=== PATIENT | female | born 1940 | race Caucasian/White ===

== ENCOUNTER 2017-06-22 09:27 | Emergency (ER) | payer OTHER, SELFPAY ==
[~2017-06-22] VITALS: Ht 160 cm; Wt 68.0 kg
[~2017-06-22 09:27] MED LIST: ACET325 PO; ALPR.5 PO; AMIT10 PO; AMIT50 PO; ASPI81CH PO; ATOR10 PO; CARV6.25; CARV6.25 PO; CEFU500 PO; CEPH500 PO; CITA20 PO; CLOP75 PO; CYCL10 PO; DIAZ10; DIGO.05 PO; DIGO.25 PO; DIPATR PO; DOCU100 PO; FURO40 PO; GLIP2.5ER PO; GLIP5 PO; HYDACE5 PO; HYDACE7.5 PO; IBUP800 PO; IRON PO; IRON325 MG PO; LANOXIN125 MCG PO; LEVE500 PO; LOPE2C PO; LOSA25 PO; LOSA50 PO; LOVA20 PO; LOVA40; LOVA40 PO; MAGOXI400 PO; MECL25 PO; METF500 PO; Micro-K10 MEQ PO; Motion Sickness25 M1 PO; Norco 7.5-3251 EACH PO; Nortriptyline H25 MG PO; ONDA4 PO; TRAZ100 PO; TRAZ50 PO; TRIHYD253A PO; VICODIN ES 7.51 EACH PO; VITAMIN D50000 UNIT PO; WARF1 PO; WARF2 PO; WARF5 PO; WATER PILL?; XARELTO15 MG PO; [UNRECOGNIZED DRUG - OTHER]; [UNRECOGNIZED DRUG - REMARK]; [UNRECOGNIZED DRUG - REMARK]; [UNRECOGNIZED DRUG - REMARK]; [UNRECOGNIZED DRUG - REMARK]
[2017-06-22 10:16] LABS: BASOPHILS ABSOLUTE AUTO 0.06 K/mm3 (0.00-0.23); BASOPHILS PERCENT AUTO 1 % (0-2); EOSINOPHILS ABSOLUTE AUTO 0.18 K/mm3 (0.00-0.68); EOSINOPHILS PERCENT AUTO 2 % (0-6); Hematocrit 35.1 % (33.0-51.0); Hemoglobin 11.7 g/dL (11.5-16.0); IMMATURE GRAN ABSOLUTE AUTO 0.03 K/mm3 (0.00-0.10); IMMATURE GRAN PERCENT AUTO 0 % (0-1); LYMPHOCYTES ABSOLUTE AUTO 1.34 K/mm3 (0.84-5.20); LYMPHOCYTES PERCENT AUTO 15 % (21-46); MONOCYTES ABSOLUTE AUTO 0.64 K/mm3 (0.16-1.47); MONOCYTES PERCENT AUTO 7 % (4-13); Mean Corpuscular HGB 34.2 pg (26.0-34.0); Mean Corpuscular HGB Conc 33.3 g/dL (31.5-36.5); Mean Corpuscular Volume 103 fL (80-100); Mean Platelet Volume 9.5 fL (9.1-12.4); NEUTROPHILS ABSOLUTE AUTO 6.54 K/mm3 (1.96-9.15); NEUTROPHILS PERCENT AUTO 75 % (41-73); Platelet Count 107 K/mm3 (150-400); RDW Coefficient Variation 15.5 % (11.7-14.2); RDW Standard Deviation 58.2 fL (35.1-46.3); Red Blood Cell Count 3.42 M/mm3 (3.80-5.20); White Blood Cell Count 8.79 K/mm3 (4.00-11.30)
[2017-06-22 10:41] LABS: Troponin I <0.015 ng/mL (0.000-0.040)
[2017-06-22 10:47] LABS: Alanine Aminotransfer (ALT/SGP 27 U/L (12-78); Albumin, Blood 3.1 g/dL (3.4-5.0); Albumin/Globulin Ratio 0.7 (0.8-1.8); Alk Phos 109 U/L (50-136); Anion Gap 6 mmol/L (6-16); Aspartate Aminotrans (AST/SGOT 42 U/L (12-37); Bilirubin, Total 1.6 mg/dL (0.1-1.0); Blood Urea Nitrogen 7 mg/dL (8-24); CO2, Blood 28 mmol/L (21-32); Calcium, Blood 8.5 mg/dL (8.5-10.1); Chloride, Blood 102 mmol/L (98-108); Creatinine, Blood 0.59 mg/dL (0.40-1.00); Globulin, Blood 4.2 g/dL (2.2-4.0); Glomerular Filtration Rate >60 (60-); Glucose, Blood 198 mg/dL (70-99); Sodium, Blood 136 mmol/L (136-145); Total Protein, Blood 7.3 g/dL (6.4-8.2)
[2017-06-22 10:48] LABS: Digoxin (Lanoxin) 0.67 ug/mL (0.80-2.00)
[2017-06-22 11:26] LABS: Source, Urine Voided
[2017-06-22 11:40] LABS: Bilirubin, Urine Neg (Neg); Blood, Urine 3+ (Neg); Glucose Qualitative, Urine Neg (Neg); Ketones, Urine Neg (Neg); Leukocyte Esterase, Urine 2+ (Neg); Nitrite, Urine Neg (Neg); Protein, Urine 4+ (Neg); Urobilinogen, Urine NORM (Normal); pH, Urine 6.5 (5.0-8.0)
[2017-06-22 11:47] LABS: Appearance, Urine Clear (Clear); Color, Urine Yellow (P-Yellow)
[2017-06-22 11:54] LABS: Bacteria Many /hpf; Squamous Epithelial Cells Mod /hpf (Few)
[2017-06-22] MEDS ORDERED: Mucinex600 MG PO (12:04)
[2017-06-22] MEDS ORDERED: CEPH500 PO (12:04)
[2017-08-29] MEDS ORDERED: MONT10T PO (02:40)
[2017-08-29] MEDS ORDERED: CITA20 PO (02:40)
[2017-08-29] MEDS ORDERED: DOXE10 PO (02:40)
[2017-09-01] MEDS ORDERED: CEFD300 PO (14:21)
[2017-09-01] MEDS ORDERED: PRED10 PO (14:22)
[2017-09-01] MEDS ORDERED: ALBU90OI INH (14:22)
== END 2017-06-22 12:30 | disposition home or self-care (01) ==
LOC: ER 09:27
PROVIDERS: Emergency Medicine
DX: J20.9 Acute bronchitis, unspecified (principal); N39.0 Urinary tract infection, site not specified; E11.9 Type 2 diabetes mellitus without complications; I10 Essential (primary) hypertension; Z88.0 Allergy status to penicillin; Z88.2 Allergy status to sulfonamides; Z88.5 Allergy status to narcotic agent; Z88.1 Allergy status to other antibiotic agents; Z79.899 Other long term (current) drug therapy; Z79.82 Long term (current) use of aspirin; Z86.73 Personal history of transient ischemic attack (TIA), and cerebral infarction without residual deficits; Z90.49 Acquired absence of other specified parts of digestive tract
CPT/HCPCS: 36415; 71046; 80053; 80162; 81001; 83880; 84484; 85025; 87077; 87086; 87186; 93005; 93010; 99284

== ENCOUNTER 2017-08-29 00:37 | Inpatient (IN) | payer OTHER, SELFPAY ==
[~2017-08-29] VITALS: Ht 160 cm; Wt 74.1 kg
[~2017-08-29 00:37] MED LIST changes: +CARV3.125 PO; -CARV6.25 PO; +Mucinex600 MG PO
[2017-08-29 01:47] LABS: BASOPHILS ABSOLUTE AUTO 0.04 K/mm3 (0.00-0.23); BASOPHILS PERCENT AUTO 1 % (0-2); EOSINOPHILS ABSOLUTE AUTO 0.19 K/mm3 (0.00-0.68); EOSINOPHILS PERCENT AUTO 3 % (0-6); Hematocrit 32.1 % (33.0-51.0); Hemoglobin 10.8 g/dL (11.5-16.0); IMMATURE GRAN ABSOLUTE AUTO 0.02 K/mm3 (0.00-0.10); IMMATURE GRAN PERCENT AUTO 0 % (0-1); LYMPHOCYTES ABSOLUTE AUTO 1.08 K/mm3 (0.84-5.20); LYMPHOCYTES PERCENT AUTO 15 % (21-46); MONOCYTES ABSOLUTE AUTO 0.68 K/mm3 (0.16-1.47); MONOCYTES PERCENT AUTO 9 % (4-13); Mean Corpuscular HGB 34.1 pg (26.0-34.0); Mean Corpuscular HGB Conc 33.6 g/dL (31.5-36.5); Mean Corpuscular Volume 101 fL (80-100); NEUTROPHILS ABSOLUTE AUTO 5.35 K/mm3 (1.96-9.15); NEUTROPHILS PERCENT AUTO 73 % (41-73); Platelet Count 77 K/mm3 (150-400); RDW Coefficient Variation 14.2 % (11.7-14.2); Red Blood Cell Count 3.17 M/mm3 (3.80-5.20); White Blood Cell Count 7.36 K/mm3 (4.00-11.30)
[2017-08-29 02:00] LABS: International Normalized Ratio 1.09; Prothrombin Time Results 11.4 Sec (9.7-11.5)
[2017-08-29 02:03] LABS: Alanine Aminotransfer (ALT/SGP 26 U/L (12-78); Albumin, Blood 2.9 g/dL (3.4-5.0); Albumin/Globulin Ratio 0.7 (0.8-1.8); Alk Phos 132 U/L (50-136); Anion Gap 8 mmol/L (6-16); Aspartate Aminotrans (AST/SGOT 43 U/L (12-37); Blood Urea Nitrogen 14 mg/dL (8-24); CO2, Blood 24 mmol/L (21-32); Calcium, Blood 8.1 mg/dL (8.5-10.1); Chloride, Blood 103 mmol/L (98-108); Creatinine, Blood 0.64 mg/dL (0.40-1.00); Globulin, Blood 3.9 g/dL (2.2-4.0); Glomerular Filtration Rate >60 (60-); Glucose, Blood 200 mg/dL (70-99); Potassium, Blood 3.9 mmol/L (3.5-5.5); Sodium, Blood 135 mmol/L (136-145); Total Protein, Blood 6.8 g/dL (6.4-8.2)
[2017-08-29] MEDS ORDERED: CITA20 PO ×2 (02:40)
[2017-08-29] MEDS ORDERED: MONT10T PO ×2 (02:40)
[2017-08-29] MEDS ORDERED: DOXE10 PO ×2 (02:40)
[2017-08-29 02:59] LABS: Source, Urine Catheter
[2017-08-29 03:08] LABS: Bilirubin, Urine Neg (Neg); Blood, Urine 3+ (Neg); Glucose Qualitative, Urine Neg (Neg); Ketones, Urine Neg (Neg); Leukocyte Esterase, Urine Neg (Neg); Nitrite, Urine Pos (Neg); Protein, Urine 4+ (Neg); Urobilinogen, Urine NORM (Normal)
[2017-08-29 03:11] LABS: Appearance, Urine Hazy (Clear); Color, Urine Yellow (P-Yellow)
[2017-08-29 03:15] LABS: Bacteria Many /hpf; Red Blood Cells, Urine Rare /hpf (0-2); Squamous Epithelial Cells Few /hpf (Few)
[2017-08-29 05:01] LABS: Digoxin (Lanoxin) 0.55 ug/mL (0.80-2.00)
[2017-08-29 05:48] LABS: Influenza A Negative (NEGATIVE); Influenza B Negative (NEGATIVE)
[2017-08-29 13:45] LABS: BASOPHILS ABSOLUTE AUTO 0.05 K/mm3 (0.00-0.23); BASOPHILS PERCENT AUTO 1 % (0-2); EOSINOPHILS ABSOLUTE AUTO 0.24 K/mm3 (0.00-0.68); EOSINOPHILS PERCENT AUTO 4 % (0-6); Hematocrit 30.8 % (33.0-51.0); Hemoglobin 10.2 g/dL (11.5-16.0); IMMATURE GRAN ABSOLUTE AUTO 0.02 K/mm3 (0.00-0.10); IMMATURE GRAN PERCENT AUTO 0 % (0-1); LYMPHOCYTES ABSOLUTE AUTO 1.48 K/mm3 (0.84-5.20); LYMPHOCYTES PERCENT AUTO 22 % (21-46); MONOCYTES ABSOLUTE AUTO 0.78 K/mm3 (0.16-1.47); MONOCYTES PERCENT AUTO 12 % (4-13); Mean Corpuscular HGB 33.7 pg (26.0-34.0); Mean Corpuscular HGB Conc 33.1 g/dL (31.5-36.5); Mean Corpuscular Volume 102 fL (80-100); Mean Platelet Volume 10.1 fL (9.1-12.4); NEUTROPHILS ABSOLUTE AUTO 4.03 K/mm3 (1.96-9.15); NEUTROPHILS PERCENT AUTO 61 % (41-73); Platelet Count 87 K/mm3 (150-400); RDW Coefficient Variation 14.4 % (11.7-14.2); RDW Standard Deviation 54.1 fL (35.1-46.3); Red Blood Cell Count 3.03 M/mm3 (3.80-5.20)
[2017-08-29 13:59] LABS: Alanine Aminotransfer (ALT/SGP 22 U/L (12-78); Albumin, Blood 2.8 g/dL (3.4-5.0); Albumin/Globulin Ratio 0.8 (0.8-1.8); Alk Phos 87 U/L (50-136); Anion Gap 7 mmol/L (6-16); Aspartate Aminotrans (AST/SGOT 41 U/L (12-37); Bilirubin, Total 1.2 mg/dL (0.1-1.0); Blood Urea Nitrogen 12 mg/dL (8-24); CO2, Blood 25 mmol/L (21-32); Calcium, Blood 7.7 mg/dL (8.5-10.1); Chloride, Blood 103 mmol/L (98-108); Creatinine, Blood 0.71 mg/dL (0.40-1.00); Globulin, Blood 3.7 g/dL (2.2-4.0); Glomerular Filtration Rate >60 (60-); Glucose, Blood 139 mg/dL (70-99); Potassium, Blood 3.9 mmol/L (3.5-5.5); Sodium, Blood 135 mmol/L (136-145); Total Protein, Blood 6.5 g/dL (6.4-8.2)
[2017-08-30 15:58] LABS: Albumin, Blood 2.9 g/dL (3.4-5.0); Anion Gap 9 mmol/L (6-16); Blood Urea Nitrogen 15 mg/dL (8-24); Bun/Creatinine Ratio 21.2 (12.0-20.0); CO2, Blood 23 mmol/L (21-32); Chloride, Blood 99 mmol/L (98-108); Creatinine, Blood 0.71 mg/dL (0.40-1.00); Glomerular Filtration Rate >60 (60-); Glucose, Blood 256 mg/dL (70-99); Phosphorus, Blood 3.2 mg/dL (2.5-4.9); Potassium, Blood 4.5 mmol/L (3.5-5.5); Sodium, Blood 131 mmol/L (136-145)
[2017-08-31 05:13] LABS: Hematocrit 31.4 % (33.0-51.0); Hemoglobin 10.4 g/dL (11.5-16.0); Mean Corpuscular HGB 32.9 pg (26.0-34.0); Mean Corpuscular HGB Conc 33.1 g/dL (31.5-36.5); Mean Platelet Volume 10.8 fL (9.1-12.4); Platelet Count 85 K/mm3 (150-400); RDW Coefficient Variation 14.2 % (11.7-14.2); RDW Standard Deviation 51.7 fL (35.1-46.3); Red Blood Cell Count 3.16 M/mm3 (3.80-5.20); White Blood Cell Count 4.51 K/mm3 (4.00-11.30)
[2017-08-31 05:24] LABS: Mean Corpuscular Volume 99 fL (80-100)
[2017-08-31 05:39] LABS: Anion Gap 8 mmol/L (6-16); Blood Urea Nitrogen 15 mg/dL (8-24); Bun/Creatinine Ratio 22.3 (12.0-20.0); CO2, Blood 24 mmol/L (21-32); Calcium, Blood 8.3 mg/dL (8.5-10.1); Chloride, Blood 98 mmol/L (98-108); Creatinine, Blood 0.67 mg/dL (0.40-1.00); Glomerular Filtration Rate >60 (60-); Glucose, Blood 183 mg/dL (70-99); Potassium, Blood 4.2 mmol/L (3.5-5.5); Sodium, Blood 130 mmol/L (136-145)
[2017-08-31 06:15] LABS: BAND PERCENT MAN 3 % (0-8); BASOPHILS PERCENT MAN 0 % (0-2); EOSINOPHILS PERCENT MAN 0 % (0-6); LYMPHOCYTES % ATYPICAL MANUAL 1 % (0-0); LYMPHOCYTES ABSOLUTE MAN 0.36 K/mm3 (0.84-5.20); LYMPHOCYTES PERCENT MAN 7 % (21-46); MONOCYTES PERCENT MAN 0 % (4-13); NEUTROPHILS ABSOLUTE MAN 4.14 K/mm3 (1.96-9.15); SEG NEUTROPHILS PERCENT MAN 89 % (41-73); TOTAL CELLS COUNTED 100
[2017-09-01 05:04] LABS: Hematocrit 31.9 % (33.0-51.0); Hemoglobin 10.4 g/dL (11.5-16.0); Mean Corpuscular HGB 33.1 pg (26.0-34.0); Mean Corpuscular HGB Conc 32.6 g/dL (31.5-36.5); Mean Platelet Volume 10.3 fL (9.1-12.4); Platelet Count 100 K/mm3 (150-400); RDW Coefficient Variation 14.7 % (11.7-14.2); RDW Standard Deviation 55.5 fL (35.1-46.3); Red Blood Cell Count 3.14 M/mm3 (3.80-5.20); White Blood Cell Count 8.24 K/mm3 (4.00-11.30)
[2017-09-01 05:11] LABS: Mean Corpuscular Volume 102 fL (80-100)
[2017-09-01 05:31] LABS: Alanine Aminotransfer (ALT/SGP 22 U/L (12-78); Albumin, Blood 2.9 g/dL (3.4-5.0); Albumin/Globulin Ratio 0.7 (0.8-1.8); Alk Phos 99 U/L (50-136); Anion Gap 5 mmol/L (6-16); Aspartate Aminotrans (AST/SGOT 33 U/L (12-37); Bilirubin, Total 0.4 mg/dL (0.1-1.0); Blood Urea Nitrogen 25 mg/dL (8-24); Bun/Creatinine Ratio 32.5 (12.0-20.0); CO2, Blood 26 mmol/L (21-32); Calcium, Blood 8.3 mg/dL (8.5-10.1); Chloride, Blood 102 mmol/L (98-108); Creatinine, Blood 0.77 mg/dL (0.40-1.00); Globulin, Blood 4.1 g/dL (2.2-4.0); Glomerular Filtration Rate >60 (60-); Glucose, Blood 199 mg/dL (70-99); Potassium, Blood 4.4 mmol/L (3.5-5.5); Sodium, Blood 133 mmol/L (136-145)
[2017-09-01 05:37] LABS: BASOPHILS PERCENT MAN 0 % (0-2); EOSINOPHILS PERCENT MAN 0 % (0-6); LYMPHOCYTES % ATYPICAL MANUAL 4 % (0-0); LYMPHOCYTES ABSOLUTE MAN 1.23 K/mm3 (0.84-5.20); LYMPHOCYTES PERCENT MAN 11 % (21-46); MONOCYTES ABSOLUTE MAN 0.32 K/mm3 (0.16-1.47); MONOCYTES PERCENT MAN 4 % (4-13); NEUTROPHILS ABSOLUTE MAN 6.67 K/mm3 (1.96-9.15); SEG NEUTROPHILS PERCENT MAN 81 % (41-73); TOTAL CELLS COUNTED 100
[2017-09-01] MEDS ORDERED: CEFD300 PO ×2 (14:21)
[2017-09-01] MEDS ORDERED: ALBU90OI INH ×2 (14:22)
[2017-09-01] MEDS ORDERED: PRED10 PO ×2 (14:22)
== END 2017-09-01 18:20 | disposition home or self-care (01) | DRG 190 ==
LOC: ER 00:37 → MEDS 04:05
PROVIDERS: Emergency Medicine; Internal Medicine; Internal Medicine Endocrinology, Diabetes & Metabolism
DX: J44.0 Chronic obstructive pulmonary disease with (acute) lower respiratory infection (principal); J96.01 Acute respiratory failure with hypoxia; N39.0 Urinary tract infection, site not specified; J20.9 Acute bronchitis, unspecified; J44.1 Chronic obstructive pulmonary disease with (acute) exacerbation; I48.2 Chronic atrial fibrillation; E11.65 Type 2 diabetes mellitus with hyperglycemia; Z79.4 Long term (current) use of insulin; D69.6 Thrombocytopenia, unspecified; D63.8 Anemia in other chronic diseases classified elsewhere; I10 Essential (primary) hypertension; D86.9 Sarcoidosis, unspecified; B95.7 Other staphylococcus as the cause of diseases classified elsewhere
CPT/HCPCS: 36415; 71046; 80048; 80053; 80069; 80162; 81001; 82947; 83605; 83880; 85025; 85610; 85730; 87040; 87077; 87086; 87186; 87804; 93005; 93010; 94640; 94760; 94761; 96361; 96365; 96375; 99285; J0456; J0696; J1650; J2930; J7030; J7050

== ENCOUNTER 2017-09-04 01:43 | Emergency (ER) | payer OTHER, SELFPAY | END 2017-09-04 03:30 | disposition left against medical advice (07) | LOC: ER 01:43 | DX: Z53.21 Procedure and treatment not carried out due to patient leaving prior to being seen by health care provider (principal) ==

== ENCOUNTER → 2017-09-04 | Outpatient (CLI) | payer OTHER, SELFPAY ==
[~2017-09-04] MED LIST changes: +ALBU90OI INH; +CEFD300 PO; +DOXE10 PO; +MONT10T PO; +PRED10 PO
[2017-09-04 12:07] LABS: BASOPHILS ABSOLUTE AUTO 0.01 K/mm3 (0.00-0.23); BASOPHILS PERCENT AUTO 0 % (0-2); EOSINOPHILS PERCENT AUTO 0 % (0-6); Hematocrit 32.3 % (33.0-51.0); Hemoglobin 10.8 g/dL (11.5-16.0); IMMATURE GRAN ABSOLUTE AUTO 0.05 K/mm3 (0.00-0.10); IMMATURE GRAN PERCENT AUTO 1 % (0-1); LYMPHOCYTES PERCENT AUTO 10 % (21-46); MONOCYTES ABSOLUTE AUTO 0.43 K/mm3 (0.16-1.47); MONOCYTES PERCENT AUTO 6 % (4-13); Mean Corpuscular HGB 33.2 pg (26.0-34.0); Mean Corpuscular HGB Conc 33.4 g/dL (31.5-36.5); Mean Platelet Volume 9.9 fL (9.1-12.4); NEUTROPHILS ABSOLUTE AUTO 5.74 K/mm3 (1.96-9.15); NEUTROPHILS PERCENT AUTO 83 % (41-73); Platelet Count 115 K/mm3 (150-400); RDW Coefficient Variation 14.7 % (11.7-14.2); RDW Standard Deviation 53.6 fL (35.1-46.3); Red Blood Cell Count 3.25 M/mm3 (3.80-5.20); White Blood Cell Count 6.93 K/mm3 (4.00-11.30)
[2017-09-04 12:10] LABS: Mean Corpuscular Volume 99 fL (80-100)
[2017-09-04 12:17] LABS: Alanine Aminotransfer (ALT/SGP 35 U/L (12-78); Albumin/Globulin Ratio 0.8 (0.8-1.8); Alk Phos 137 U/L (40-126); Anion Gap 8 mmol/L (6-16); Aspartate Aminotrans (AST/SGOT 41 U/L (12-37); Bilirubin, Total 0.7 mg/dL (0.1-1.0); Blood Urea Nitrogen 18 mg/dL (8-24); Bun/Creatinine Ratio 23.4 (12.0-20.0); CO2, Blood 30 mmol/L (21-32); Calcium, Blood 8.3 mg/dL (8.5-10.1); Chloride, Blood 100 mmol/L (98-108); Creatinine, Blood 0.77 mg/dL (0.40-1.00); Globulin, Blood 3.9 g/dL (2.2-4.0); Glomerular Filtration Rate >60 (60-); Glucose, Blood 212 mg/dL (70-99); Potassium, Blood 4.2 mmol/L (3.5-5.5); Sodium, Blood 138 mmol/L (136-145); Total Protein, Blood 6.9 g/dL (6.4-8.2)
== END | disposition home or self-care (01) ==
LOC: LAB SHORT 12:00 → LAB EV 12:00
PROVIDERS: Physician Assistant
DX: R73.9 Hyperglycemia, unspecified (principal); R05 Cough
CPT/HCPCS: 80053; 83880; 85025

== ENCOUNTER 2017-11-15 01:49 | Emergency (ER) | payer OTHER ==
[~2017-11-15 01:49] MED LIST changes: -CARV3.125 PO; +CARV6.25 PO
[2017-11-15] MEDS ORDERED: HYDR1TAB94 PO (16:57)
[2017-11-15] MEDS ORDERED: POTCHL10ER PO (16:58)
[2017-11-15] MEDS ORDERED: XARELTO15 MG PO (16:58)
[2017-11-15] MEDS ORDERED: PROMETH-CODEIN 65 ML PO (17:00)
[2017-11-16] MEDS ORDERED: INSULANPEN SC (13:15)
== END 2017-11-15 04:03 | disposition left against medical advice (07) ==
LOC: ER 01:49
DX: Z53.21 Procedure and treatment not carried out due to patient leaving prior to being seen by health care provider (principal)

== ENCOUNTER 2017-11-15 15:26 | Inpatient (IN) | payer OTHER ==
[~2017-11-15] VITALS: Ht 160 cm; Wt 74.0 kg
[2017-11-15 15:55] LABS: BASOPHILS ABSOLUTE AUTO 0.08 K/mm3 (0.00-0.23); BASOPHILS PERCENT AUTO 1 % (0-2); EOSINOPHILS ABSOLUTE AUTO 0.26 K/mm3 (0.00-0.68); EOSINOPHILS PERCENT AUTO 3 % (0-6); Hematocrit 33.2 % (33.0-51.0); IMMATURE GRAN ABSOLUTE AUTO 0.03 K/mm3 (0.00-0.10); IMMATURE GRAN PERCENT AUTO 0 % (0-1); LYMPHOCYTES ABSOLUTE AUTO 2.34 K/mm3 (0.84-5.20); LYMPHOCYTES PERCENT AUTO 24 % (21-46); MONOCYTES ABSOLUTE AUTO 1.18 K/mm3 (0.16-1.47); MONOCYTES PERCENT AUTO 12 % (4-13); Mean Corpuscular HGB 32.9 pg (26.0-34.0); Mean Corpuscular HGB Conc 33.1 g/dL (31.5-36.5); Mean Corpuscular Volume 99 fL (80-100); Mean Platelet Volume 10.3 fL (9.1-12.4); NEUTROPHILS ABSOLUTE AUTO 6.01 K/mm3 (1.96-9.15); NEUTROPHILS PERCENT AUTO 61 % (41-73); Platelet Count 112 K/mm3 (150-400); RDW Coefficient Variation 14.8 % (11.7-14.2); RDW Standard Deviation 54.1 fL (35.1-46.3); Red Blood Cell Count 3.34 M/mm3 (3.80-5.20)
[2017-11-15 16:14] LABS: Alanine Aminotransfer (ALT/SGP 26 U/L (12-78); Albumin, Blood 3.2 g/dL (3.4-5.0); Albumin/Globulin Ratio 0.9 (0.8-1.8); Alk Phos 106 U/L (50-136); Anion Gap 11 mmol/L (6-16); Aspartate Aminotrans (AST/SGOT 51 U/L (12-37); Bilirubin, Total 1.1 mg/dL (0.1-1.0); Blood Urea Nitrogen 13 mg/dL (8-24); Bun/Creatinine Ratio 22.5 (12.0-20.0); CO2, Blood 23 mmol/L (21-32); Calcium, Blood 8.3 mg/dL (8.5-10.1); Chloride, Blood 98 mmol/L (98-108); Creatinine, Blood 0.58 mg/dL (0.40-1.00); Globulin, Blood 3.6 g/dL (2.2-4.0); Glomerular Filtration Rate >60 (60-); Glucose, Blood 141 mg/dL (70-99); Sodium, Blood 132 mmol/L (136-145); Total Protein, Blood 6.8 g/dL (6.4-8.2); Troponin I 0.073 ng/mL (0.000-0.040)
[2017-11-15] MEDS ORDERED: HYDR1TAB94 PO (16:57)
[2017-11-15] MEDS ORDERED: POTCHL10ER PO (16:58)
[2017-11-15] MEDS ORDERED: XARELTO15 MG PO (16:58)
[2017-11-15] MEDS ORDERED: PROMETH-CODEIN 65 ML PO (17:00)
[2017-11-15 19:00] LABS: Digoxin (Lanoxin) <0.06 ug/mL (0.80-2.00)
[2017-11-16 08:45] LABS: Anion Gap 10 mmol/L (6-16); Blood Urea Nitrogen 15 mg/dL (8-24); CO2, Blood 26 mmol/L (21-32); Calcium, Blood 8.4 mg/dL (8.5-10.1); Chloride, Blood 94 mmol/L (98-108); Creatinine, Blood 0.58 mg/dL (0.40-1.00); Glomerular Filtration Rate >60 (60-); Glucose, Blood 131 mg/dL (70-99); Potassium, Blood 3.9 mmol/L (3.5-5.5); Sodium, Blood 130 mmol/L (136-145)
[2017-11-16] MEDS ORDERED: INSULANPEN SC (13:15)
[2017-11-17 00:39] LABS: Source, Urine Clean Catch
[2017-11-17 00:49] LABS: Bilirubin, Urine Neg (Neg); Blood, Urine 1+ (Neg); Glucose Qualitative, Urine Neg (Neg); Ketones, Urine Neg (Neg); Leukocyte Esterase, Urine 3+ (Neg); Nitrite, Urine Neg (Neg); Protein, Urine 1+ (Neg); Urobilinogen, Urine NORM (Normal)
[2017-11-17 00:56] LABS: Appearance, Urine Clear (Clear); Color, Urine Yellow (P-Yellow); Red Blood Cells, Urine 0-2 /hpf (0-2); Squamous Epithelial Cells Few /hpf (Few); White Blood Cells, Urine 25-50 /hpf (0-5)
[2017-11-17 00:57] LABS: Bacteria Few /hpf
[2017-11-18 05:39] LABS: BASOPHILS ABSOLUTE AUTO 0.05 K/mm3 (0.00-0.23); BASOPHILS PERCENT AUTO 1 % (0-2); EOSINOPHILS ABSOLUTE AUTO 0.22 K/mm3 (0.00-0.68); EOSINOPHILS PERCENT AUTO 4 % (0-6); Hematocrit 32.5 % (33.0-51.0); Hemoglobin 10.8 g/dL (11.5-16.0); IMMATURE GRAN ABSOLUTE AUTO 0.02 K/mm3 (0.00-0.10); IMMATURE GRAN PERCENT AUTO 0 % (0-1); LYMPHOCYTES ABSOLUTE AUTO 1.58 K/mm3 (0.84-5.20); LYMPHOCYTES PERCENT AUTO 25 % (21-46); MONOCYTES ABSOLUTE AUTO 0.98 K/mm3 (0.16-1.47); MONOCYTES PERCENT AUTO 16 % (4-13); Mean Corpuscular HGB 33.3 pg (26.0-34.0); Mean Corpuscular HGB Conc 33.2 g/dL (31.5-36.5); Mean Corpuscular Volume 100 fL (80-100); Mean Platelet Volume 10.4 fL (9.1-12.4); NEUTROPHILS ABSOLUTE AUTO 3.48 K/mm3 (1.96-9.15); NEUTROPHILS PERCENT AUTO 55 % (41-73); Platelet Count 91 K/mm3 (150-400); RDW Coefficient Variation 14.9 % (11.7-14.2); RDW Standard Deviation 55.6 fL (35.1-46.3); Red Blood Cell Count 3.24 M/mm3 (3.80-5.20); White Blood Cell Count 6.33 K/mm3 (4.00-11.30)
[2017-11-18 06:06] LABS: Alanine Aminotransfer (ALT/SGP 25 U/L (12-78); Albumin, Blood 2.8 g/dL (3.4-5.0); Albumin/Globulin Ratio 0.8 (0.8-1.8); Alk Phos 94 U/L (50-136); Anion Gap 9 mmol/L (6-16); Aspartate Aminotrans (AST/SGOT 43 U/L (12-37); Bilirubin, Total 0.6 mg/dL (0.1-1.0); Blood Urea Nitrogen 25 mg/dL (8-24); Bun/Creatinine Ratio 28.1 (12.0-20.0); CO2, Blood 26 mmol/L (21-32); Calcium, Blood 8.6 mg/dL (8.5-10.1); Chloride, Blood 102 mmol/L (98-108); Creatinine, Blood 0.89 mg/dL (0.40-1.00); Globulin, Blood 3.5 g/dL (2.2-4.0); Glomerular Filtration Rate >60 (60-); Glucose, Blood 96 mg/dL (70-99); Potassium, Blood 4.3 mmol/L (3.5-5.5); Sodium, Blood 137 mmol/L (136-145); Total Protein, Blood 6.3 g/dL (6.4-8.2)
[2017-11-18] MEDS ORDERED: LANOXIN125 MCG PO (12:26)
[2017-11-18] MEDS ORDERED: CEPH500 PO (12:27)
== END 2017-11-18 17:30 | disposition home or self-care (01) | DRG 291 ==
LOC: ER 15:26 → PCU 18:50 → MEDS 20:35 → PCU 20:35 → MEDS 11-16 17:45
PROVIDERS: Emergency Medicine; Internal Medicine
DX: I11.0 Hypertensive heart disease with heart failure (principal); J96.01 Acute respiratory failure with hypoxia; I24.8 Other forms of acute ischemic heart disease; E87.1 Hypo-osmolality and hyponatremia; N39.0 Urinary tract infection, site not specified; Z79.82 Long term (current) use of aspirin; I50.33 Acute on chronic diastolic (congestive) heart failure; D86.9 Sarcoidosis, unspecified; E78.5 Hyperlipidemia, unspecified; Z90.49 Acquired absence of other specified parts of digestive tract; Z96.652 Presence of left artificial knee joint; Z87.891 Personal history of nicotine dependence; I48.2 Chronic atrial fibrillation; Z86.73 Personal history of transient ischemic attack (TIA), and cerebral infarction without residual deficits; E11.9 Type 2 diabetes mellitus without complications; D63.8 Anemia in other chronic diseases classified elsewhere; Z79.4 Long term (current) use of insulin; Z87.440 Personal history of urinary (tract) infections; D69.6 Thrombocytopenia, unspecified; I08.1 Rheumatic disorders of both mitral and tricuspid valves
CPT/HCPCS: 36415; 71046; 80048; 80053; 80162; 81001; 82947; 83036; 83880; 84484; 85025; 87086; 93005; 93010; 93306; 94760; 96365; 96375; 99285-25; J0696; J1815; J1940; J7030

== ENCOUNTER 2018-04-19 06:13 | Day surgery (SDC) | payer OTHER ==
[~2018-04-19] VITALS: Ht 160 cm; Wt 69.4 kg
[~2018-04-19 06:13] MED LIST changes: +HYDR1TAB94 PO; +INSULANPEN SC; +POTCHL10ER PO; +PROMETH-CODEIN 65 ML PO
== END 2018-04-19 11:47 | disposition home or self-care (01) ==
LOC: ORSCSDS 06:13
PROVIDERS: Orthopaedic Surgery
PROC: 0RNK4ZZ Release Left Shoulder Joint, Percutaneous Endoscopic Approach (ICD-10-PCS; principal; 2018-04-19 07:30)
PROC: 0LQ24ZZ Repair Left Shoulder Tendon, Percutaneous Endoscopic Approach (ICD-10-PCS; principal; 2018-04-19 07:30)
PROC: 0RBK4ZZ Excision of Left Shoulder Joint, Percutaneous Endoscopic Approach (ICD-10-PCS; principal; 2018-04-19 07:30)
PROC: 0LS24ZZ Reposition Left Shoulder Tendon, Percutaneous Endoscopic Approach (ICD-10-PCS; principal; 2018-04-19 07:30)
DX: M75.122 Complete rotator cuff tear or rupture of left shoulder, not specified as traumatic (principal); M75.42 Impingement syndrome of left shoulder; M19.012 Primary osteoarthritis, left shoulder; S43.432A Superior glenoid labrum lesion of left shoulder, initial encounter; S46.112A Strain of muscle, fascia and tendon of long head of biceps, left arm, initial encounter; I10 Essential (primary) hypertension; I48.91 Unspecified atrial fibrillation; Z79.01 Long term (current) use of anticoagulants; K74.60 Unspecified cirrhosis of liver; E11.40 Type 2 diabetes mellitus with diabetic neuropathy, unspecified; Z79.4 Long term (current) use of insulin; Z79.82 Long term (current) use of aspirin; Z79.899 Other long term (current) drug therapy
CPT/HCPCS: 82947; C1713; J1100; J2250; J2370; J2405; J2710; J3010; J3370; J7120

== ENCOUNTER 2018-04-21 04:21 | Emergency (ER) | payer OTHER ==
[~2018-04-21] VITALS: Ht 160 cm; Wt 68.0 kg
== END 2018-04-21 05:27 | disposition home or self-care (01) ==
LOC: ER 04:21
DX: M25.512 Pain in left shoulder (principal); E11.9 Type 2 diabetes mellitus without complications; I10 Essential (primary) hypertension; Z88.0 Allergy status to penicillin; Z88.2 Allergy status to sulfonamides; Z88.1 Allergy status to other antibiotic agents; Z88.8 Allergy status to other drugs, medicaments and biological substances; Z79.899 Other long term (current) drug therapy; Z79.82 Long term (current) use of aspirin; Z79.4 Long term (current) use of insulin; Z86.73 Personal history of transient ischemic attack (TIA), and cerebral infarction without residual deficits; Z87.891 Personal history of nicotine dependence
CPT/HCPCS: 99283

== ENCOUNTER 2018-05-08 15:35 | Observation (INO) | payer OTHER ==
[~2018-05-08] VITALS: Ht 160 cm; Wt 71.9 kg
[~2018-05-08 15:35] MED LIST changes: +XARELTO10 MG PO
[2018-05-08 16:04] LABS: PO2 Arterial 60.1 mmHg (80-100); pH Blood Arterial 7.44 (7.35-7.45)
[2018-05-08 16:10] LABS: BASOPHILS ABSOLUTE AUTO 0.09 K/mm3 (0.00-0.23); BASOPHILS PERCENT AUTO 1 % (0-2); EOSINOPHILS PERCENT AUTO 6 % (0-6); Hematocrit 32.5 % (33.0-51.0); Hemoglobin 10.6 g/dL (11.5-16.0); IMMATURE GRAN ABSOLUTE AUTO 0.05 K/mm3 (0.00-0.10); IMMATURE GRAN PERCENT AUTO 1 % (0-1); LYMPHOCYTES ABSOLUTE AUTO 2.17 K/mm3 (0.84-5.20); LYMPHOCYTES PERCENT AUTO 23 % (21-46); MONOCYTES ABSOLUTE AUTO 1.01 K/mm3 (0.16-1.47); MONOCYTES PERCENT AUTO 11 % (4-13); Mean Corpuscular HGB 33.5 pg (26.0-34.0); Mean Corpuscular HGB Conc 32.6 g/dL (31.5-36.5); Mean Corpuscular Volume 103 fL (80-100); Mean Platelet Volume 10.2 fL (9.1-12.4); NEUTROPHILS ABSOLUTE AUTO 5.62 K/mm3 (1.96-9.15); NEUTROPHILS PERCENT AUTO 59 % (41-73); Platelet Count 125 K/mm3 (150-400); Red Blood Cell Count 3.16 M/mm3 (3.80-5.20); White Blood Cell Count 9.54 K/mm3 (4.00-11.30)
[2018-05-08 16:29] LABS: Alanine Aminotransfer (ALT/SGP 32 U/L (12-78); Albumin, Blood 2.9 g/dL (3.4-5.0); Albumin/Globulin Ratio 0.7 (0.8-1.8); Alk Phos 177 U/L (50-136); Anion Gap 9 mmol/L (6-16); Aspartate Aminotrans (AST/SGOT 59 U/L (12-37); Bilirubin, Total 1.2 mg/dL (0.1-1.0); Blood Urea Nitrogen 8 mg/dL (8-24); Bun/Creatinine Ratio 13.6 (12.0-20.0); CO2, Blood 23 mmol/L (21-32); Calcium, Blood 8.1 mg/dL (8.5-10.1); Chloride, Blood 103 mmol/L (98-108); Creatinine, Blood 0.59 mg/dL (0.40-1.00); Glomerular Filtration Rate >60 (60-); Glucose, Blood 154 mg/dL (70-99); Magnesium, Blood 1.4 mg/dL (1.6-2.4); Potassium, Blood 3.9 mmol/L (3.5-5.5); Sodium, Blood 135 mmol/L (136-145); Total Protein, Blood 6.9 g/dL (6.4-8.2); Troponin I <0.015 ng/mL (0.000-0.040)
[2018-05-08 16:41] LABS: Influenza A Negative (NEGATIVE); Influenza B Negative (NEGATIVE)
[2018-05-08 19:08] LABS: Digoxin (Lanoxin) 0.12 ug/mL (0.80-2.00)
[2018-05-08] MEDS ORDERED: FAMO20 PO (20:14)
[2018-05-08] MEDS ORDERED: BENZ100A PO (20:15)
--- NOTE | 2018-05-09 02:39 | NUR ---
ADMISSION: PATIENT ARRIVED TO ROOM U7 AT APPROX 1925, ALERT AND ORIENTED AND ABLE TO AMBULATE FROM RNEY TO BED WITH MINIMAL ASSIST. PATIENT STEADY ON FEET AND ONLY NEEDED ASSISTANCE D/T IMMOBILITY/PAIN OF RECENTLY OPERATED ON LEFT ARM. PATIENT MILDLY WEAK AND WITH SOME MILD SOB WITH ACTIVITY. SKIN C/D/I. PATIENT ORIENTED TO ROOM, CALL LIGHT AND HOSPITAL POLICIES. ADMISSION COMPLETED AND PATIENT HOME MEDICATIONS HAND DELIVERED TO PHARMACY, RECIEPT RECIEVED AND IN PATIENT CHART.
[2018-05-09 03:48] LABS: Adenovirus Not Detected (NOT DETECT); Bordetella pertussis Not Detected (NOT DETECT); Chlamydophila pneumoniae Not Detected (NOT DETECT); Coronavirus 229E Not Detected (NOT DETECT); Coronavirus HKU1 Not Detected (NOT DETECT); Coronavirus NL63 Not Detected (NOT DETECT); Coronavirus OC43 Not Detected (NOT DETECT); Human Metapneumovirus Not Detected (NOT DETECT); Human Rhinovirus/Enterovirus Not Detected (NOT DETECT); Influenza A/2009-H1 Not Detected (NOT DETECT); Influenza A/H1 Not Detected (NOT DETECT); Influenza A/H3 Not Detected (NOT DETECT); Influenza B Not Detected (NOT DETECT); Mycoplasma pneumoniae Not Detected (NOT DETECT); Parainfluenza Virus 1 Not Detected (NOT DETECT); Parainfluenza Virus 2 Not Detected (NOT DETECT); Parainfluenza Virus 3 Not Detected (NOT DETECT); Parainfluenza Virus 4 Not Detected (NOT DETECT); Respiratory Syncytial Virus Not Detected (NOT DETECT)
[2018-05-09 04:18] LABS: BASOPHILS ABSOLUTE AUTO 0.08 K/mm3 (0.00-0.23); BASOPHILS PERCENT AUTO 1 % (0-2); EOSINOPHILS ABSOLUTE AUTO 0.42 K/mm3 (0.00-0.68); EOSINOPHILS PERCENT AUTO 6 % (0-6); Hematocrit 27.8 % (33.0-51.0); Hemoglobin 9.2 g/dL (11.5-16.0); IMMATURE GRAN ABSOLUTE AUTO 0.03 K/mm3 (0.00-0.10); IMMATURE GRAN PERCENT AUTO 0 % (0-1); LYMPHOCYTES PERCENT AUTO 22 % (21-46); MONOCYTES ABSOLUTE AUTO 0.92 K/mm3 (0.16-1.47); MONOCYTES PERCENT AUTO 13 % (4-13); Mean Corpuscular HGB 33.8 pg (26.0-34.0); Mean Corpuscular HGB Conc 33.1 g/dL (31.5-36.5); Mean Corpuscular Volume 102 fL (80-100); Mean Platelet Volume 9.8 fL (9.1-12.4); NEUTROPHILS ABSOLUTE AUTO 4.11 K/mm3 (1.96-9.15); NEUTROPHILS PERCENT AUTO 58 % (41-73); Platelet Count 91 K/mm3 (150-400); RDW Coefficient Variation 16.2 % (11.7-14.2); RDW Standard Deviation 59.7 fL (35.1-46.3); Red Blood Cell Count 2.72 M/mm3 (3.80-5.20); White Blood Cell Count 7.16 K/mm3 (4.00-11.30)
[2018-05-09 04:39] LABS: Anion Gap 8 mmol/L (6-16); Blood Urea Nitrogen 9 mg/dL (8-24); Bun/Creatinine Ratio 14.7 (12.0-20.0); CO2, Blood 25 mmol/L (21-32); Calcium, Blood 7.9 mg/dL (8.5-10.1); Chloride, Blood 103 mmol/L (98-108); Creatinine, Blood 0.61 mg/dL (0.40-1.00); Glomerular Filtration Rate >60 (60-); Glucose, Blood 123 mg/dL (70-99); Potassium, Blood 3.5 mmol/L (3.5-5.5); Sodium, Blood 136 mmol/L (136-145)
--- NOTE | 2018-05-09 05:26 | NUR ---
SHIFT SUMMARY: PATIENT RECIEVED PAIN MED X1 PER MD ORDER. CARDIZEM DRIP STOPPED AT APPROX 0200 AND MAINTAINING IN 70'S AND 80'S, ALL OTHER VSS, CALL LIGHT WITHIN REACH, BED LOW AND LOCKED, COUGH BECOMING MORE FREQUENT.
[2018-05-09 05:29] LABS: Influenza A Not Detected (NOT DETECT)
--- NOTE | 2018-05-09 15:27 | NUR ---
HOME ENVIROMENT TALKED WITH PT POWER OF CUSTOMER SERVICE REPRESENTATIVE TELLER, RENNY. PT IS IN A VERY UNSAFE ENVIROMENT SINCE HER SON RECENTLY. RENNY IS WORKING WITH SENIOR SERVICES TO TRY AND GET PT A SAFE PLACE TO STAY. RENNY IS ASKING FOR A MEETING WITH CLEAR COAT SPRAYER TOMORROW TO SEE IF WE CAN HELP GUIDE HER. SHE WOULD LIKE AN EMERGENY PLACMENT IF POSSIBLE. SHE DOESN'T KNOW WHERE TO . CONTINUE POT.
--- NOTE | 2018-05-09 17:53 | NUR ---
EVENING NOTE PT ALERT. AFIB WITH CVR. FREQUENT TRIPS TO THE BATHROOM WITH SBA. GAIT STEADY. VSS. PT DENIES PAIN OR DISCOMFORT. HER ONLY COMPLAINT IS THE FOOD. LUNCH AND DINNER STAFF SUPPLIED HER WITH TURKEY SANDWHICHES. THE HOME PT IS LIVING IN IS HER HOME. HER GRANDDAUGHTER HAS MENTAL HEALTH ISSUES. PT IS AFRAID TO TELL GRANDDAUGHTER AND HER LARGE GROUP OF FRIENDS TO LEAVE. TALKED WITH PT ABOUT HER HOME CHALLENGES. SHE DOESN'T SEE ANY WAY AROUND IT. PT FEELS HOPELESS AND HELPLESS. CONTINUE POT.
--- NOTE | 2018-05-10 05:10 | NUR ---
SHIFT SUMMARY: PATEINT C/O EPISODES OF COUGHING, SLEPT WELL HOWEVER. VSS, CALL LIGHT WITHN REACH, BED LOW AND LOCKED.
[2018-05-10 06:51] LABS: BASOPHILS ABSOLUTE AUTO 0.05 K/mm3 (0.00-0.23); BASOPHILS PERCENT AUTO 1 % (0-2); EOSINOPHILS PERCENT AUTO 7 % (0-6); Hematocrit 30.2 % (33.0-51.0); Hemoglobin 9.9 g/dL (11.5-16.0); IMMATURE GRAN ABSOLUTE AUTO 0.02 K/mm3 (0.00-0.10); IMMATURE GRAN PERCENT AUTO 0 % (0-1); LYMPHOCYTES ABSOLUTE AUTO 1.31 K/mm3 (0.84-5.20); LYMPHOCYTES PERCENT AUTO 18 % (21-46); MONOCYTES ABSOLUTE AUTO 0.83 K/mm3 (0.16-1.47); MONOCYTES PERCENT AUTO 12 % (4-13); Mean Corpuscular HGB 33.4 pg (26.0-34.0); Mean Corpuscular HGB Conc 32.8 g/dL (31.5-36.5); Mean Corpuscular Volume 102 fL (80-100); Mean Platelet Volume 9.8 fL (9.1-12.4); NEUTROPHILS PERCENT AUTO 62 % (41-73); Platelet Count 91 K/mm3 (150-400); RDW Coefficient Variation 16.2 % (11.7-14.2); RDW Standard Deviation 60.4 fL (35.1-46.3); Red Blood Cell Count 2.96 M/mm3 (3.80-5.20); White Blood Cell Count 7.21 K/mm3 (4.00-11.30)
[2018-05-10 07:03] LABS: Anion Gap 9 mmol/L (6-16); Blood Urea Nitrogen 11 mg/dL (8-24); Bun/Creatinine Ratio 16.1 (12.0-20.0); CO2, Blood 26 mmol/L (21-32); Calcium, Blood 8.1 mg/dL (8.5-10.1); Chloride, Blood 103 mmol/L (98-108); Creatinine, Blood 0.69 mg/dL (0.40-1.00); Glomerular Filtration Rate >60 (60-); Glucose, Blood 104 mg/dL (70-99); Potassium, Blood 3.7 mmol/L (3.5-5.5); Sodium, Blood 138 mmol/L (136-145)
--- NOTE | 2018-05-10 10:52 | NUR ---
AM NOTE VISITING WITH PT. SHE WAS TELLING THIS NURSE ABOUT HER GRANDDAUGHTER AND HOW SHE IS TREATED. PT HAS HAD TO GIVE "TOUGH LOVE" TO HER SON AND HER BROTHER. RENNY IS GOING TO BE BACK ABOUT 3PM TO RE MEET WITH LIN. ASKED PT IF SHE FELT SAFE AT HOME. PT STATED "NO." SHE FEELS VERY UNSAFE AROUND RENE AND LALITHA FRIENDS. CONTINUE POT.
--- NOTE | 2018-05-10 12:02 | NUR ---
Pt was sitting in a chair occupying herself with a word puzzle. Greetings were exchanged and pt was provided space to reflect on her values. Pt considers herself Judaism, but is not practicing at this time. 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 Pt considers those she volunteers with as friends. Pt is open to prayer and states, "You can pray as good as anyone." Verbal prayer offered and pt verbalizes gratitude. I will remain available.
--- NOTE | 2018-05-11 05:28 | NUR ---
SHIFT SUMMARY. MENTATION CLEAR SLEPT WELL. TOP OF LT SHOULDER W/ SOFT SWOLLEN SPOT. ICE PLACED AT INTERVALS PER HOME INSTRUCTIONS AND COMFORT.DISCUSSED SLING USE AND REPORTS SHE IS CAREFUL TO KEEP ARM UP IF SLING WAS IN USE AND SHE WOULD NOT WEAR IT AT NOC IN BED. BUT SHE DOES KEEP ARM FROM DANGLING AND SWINGING WHEN OOB TO BR W/ ASSIST . PO MED FOR PAIN ONE TIME. ENC TO COUGH AND DEEP BREATHE WHILE IN BED. NOTED PARTIAL START OF SKIN BREAKDOWN AT COCCYX . MEPILEX PLACED..POST PHOTO. REPORTS SORENESS OR STINGING/ AF CONTROLLED ALL NOC
--- NOTE | 2018-05-11 08:00 | NUR ---
PT LAYING IN BED AWAKE A/OX3, PLEASANT AND COOPERATIVE WITH CARE, FOLLOWS COMMANDS WELL, DENIES PAIN AT THIS TIME, LUNGS ARE CLEAR, DIM IN RIGHT BASE, RESP EVEN AND UNLABORED, PT REPORTS AN OCC COUGH WITH CLEAR PHLEM, IS CURRENTLY ON R/A, HRIRR, TELE IN PLACE RUNNING AFIB AT CONTROLLED RATE, NO EDEAMA NOTED, PPP+2, CAP REFILL <3SEC, VS STABLE, AFEBRILE, IV SITE IS CLEAR AND PATENT, BTX4, ABD FLAT SOFT NONTENDER, VOIDS WITHOUT DIFF, SKIN C/W/D, MAEW, KOREY, CALL LIGHT IN REACH.
--- NOTE | 2018-05-11 12:49 | NUR ---
pt up to chair and ambulated around unit with tool room supervisor in attendence. no needs at this time or complaints. call light in reach.
--- NOTE | 2018-05-11 18:07 | NUR ---
pt has been changed to medical status, report given to Alyson ENGEL, she was taken to surgical floor via wheelchair with diet aide in attendence. no acute change in pt condition. all belongings went with with pt.
--- NOTE | 2018-05-11 18:15 | NUR ---
assumed care of pt following receiving report from ASSEMBLY DEPARTMENT SUPERVISORTORO Vega. pt transferred herself to recliner with standby minimal assist. PT a/0 x 4, pleasant/cooperative,
--- NOTE | 2018-05-12 06:13 | NUR ---
SUMMARY NO ACUTE CHANGES FROM ASSESSMENT, VSS, PT A&O X4. PAIN MANAGED WITH 1 NORCO PER EMAR. PT CALLS FOR ASSISTANCE PRN. NO VISITORS NOTED THROUGH THE NIGHT. CALL LIGHT IN REACH. WCTM
--- NOTE | 2018-05-12 10:30 | NUR ---
CASE MANAGEMENT IN TALKING WITH PT. DR HORTON BEEN HERE.
--- NOTE | 2018-05-12 13:40 | NUR ---
PT'S BEE LÓPEZ HERE TO SEE PATIENT AND TO SEE "WHAT IS GOING ON" AND WHY THERE "IS AN ISSUE WITH HER BEING HERE" AND WANTING TO SPEAK WITH HER GRANDMOTHER. THIS RN IN TO ASK PATIENT IF SHE WISHED TO SPEAK WITH BEE-PT DECLINED TO SEE BEE. ADVISED BEE LÓPEZ THAT SHE NEEDS TO SPEAK WITH ADULT PROTECTIVE SERVICES FOR ANY ANSWERS TO QUESTIONS REGARDING CASE.
--- NOTE | 2018-05-12 18:55 | NUR ---
SHIFT SUMMARY PT EATING AND DRINKING WELL. PT VOIDING AND HAD BM TODAY. DR BEEN HERE. CASE MANAGEMENT ASSISTING WITH PLAN FOR D/C WHO REPORTS TALKING WITH [employer] STAFF. PT USING CALL LIGHT. UP WITH SBA. BEEN ASSISTED WITH ADL'S PRN.
--- NOTE | 2018-05-13 05:02 | NUR ---
SUMMARY: NO ACUTE CHANGE THIS SHIFT. VSS, PT UP WITH 1 ASSIST, TELE WNL PT DENIES CHEST PAIN. MEDICATED PRN FOR SHOULDER PAIN. PLAN IS TO DISCUSS WITH TODDLER LEAD TEACHER PT HOME SITUATION BEFORE DISCHARGE. NO ACUTE SAFETY CONCERNS AT THIS TIME
[2018-05-13] MEDS ORDERED: ACET325 PO (09:53)
--- NOTE | 2018-05-13 12:14 | NUR ---
DISCHARGE: PT REPORTS UNDERSTANDING OF DISCHARGE INSTRUCTIONS. PT TO BE STAYING AT FRIENDS HOUSE PER PT AND PT'S "ADOPTED DAUGHTER". MANAGER FUNCTIONAL ASSISTED WITH PT'S DISCHARGE. PT EATING AND DRINKING WELL. VOIDING, HAVING BM'S. PT DENIES CP/SOB. PAPERWORK AND PT'S OWN MEDS SENT WITH PT WELL PT'S BELONGINGS. PT TO GET RIDE TO PT'S FRIENDS HOUSE. VAIBHAV FROM [facility] ALSO REPORTED HELPING ARRANGING PT ABLE TO GET PAIN MEDICATION SCRIPT FROM OFFICE. IV OUT WNL.
== END 2018-05-13 12:24 | disposition home or self-care (01) ==
LOC: ER 15:35 → PCU 15:36 → SURS 05-11 18:10
PROVIDERS: Emergency Medicine; Family Medicine; ADMIT Family Medicine
DX: I11.0 Hypertensive heart disease with heart failure (principal); I50.33 Acute on chronic diastolic (congestive) heart failure; J96.01 Acute respiratory failure with hypoxia; I48.91 Unspecified atrial fibrillation; J90 Pleural effusion, not elsewhere classified; D69.6 Thrombocytopenia, unspecified; E87.1 Hypo-osmolality and hyponatremia; E83.42 Hypomagnesemia; D64.9 Anemia, unspecified; E11.9 Type 2 diabetes mellitus without complications; Z88.0 Allergy status to penicillin; Z88.2 Allergy status to sulfonamides; Z88.1 Allergy status to other antibiotic agents; Z86.73 Personal history of transient ischemic attack (TIA), and cerebral infarction without residual deficits; Z79.01 Long term (current) use of anticoagulants; Z79.899 Other long term (current) drug therapy; Z87.891 Personal history of nicotine dependence; Z60.9 Problem related to social environment, unspecified
CPT/HCPCS: 36415; 36600; 71046; 80048; 80053; 80162; 82803; 82947; 83735; 83880; 84484; 85025; 87486; 87581; 87633; 87798; 87804; 93005; 93010; 94640; 94760; 96365; 96366; 96367; 96376; 99285-25; G0378; J1815; J3475

== ENCOUNTER 2018-05-21 15:42 | Inpatient (IN) | payer OTHER ==
[~2018-05-21] VITALS: Ht 160 cm; Wt 72.4 kg
[~2018-05-21 15:42] MED LIST changes: +BENZ100A PO; +FAMO20 PO
[2018-05-21 16:20] LABS: BASOPHILS ABSOLUTE AUTO 0.07 K/mm3 (0.00-0.23); BASOPHILS PERCENT AUTO 1 % (0-2); EOSINOPHILS ABSOLUTE AUTO 0.22 K/mm3 (0.00-0.68); EOSINOPHILS PERCENT AUTO 2 % (0-6); Hematocrit 35.2 % (33.0-51.0); Hemoglobin 11.5 g/dL (11.5-16.0); IMMATURE GRAN ABSOLUTE AUTO 0.04 K/mm3 (0.00-0.10); IMMATURE GRAN PERCENT AUTO 0 % (0-1); LYMPHOCYTES ABSOLUTE AUTO 1.73 K/mm3 (0.84-5.20); LYMPHOCYTES PERCENT AUTO 18 % (21-46); MONOCYTES PERCENT AUTO 7 % (4-13); Mean Corpuscular HGB 33.8 pg (26.0-34.0); Mean Corpuscular HGB Conc 32.7 g/dL (31.5-36.5); Mean Corpuscular Volume 104 fL (80-100); Mean Platelet Volume 10.2 fL (9.1-12.4); NEUTROPHILS ABSOLUTE AUTO 6.75 K/mm3 (1.96-9.15); NEUTROPHILS PERCENT AUTO 71 % (41-73); Platelet Count 127 K/mm3 (150-400); RDW Coefficient Variation 15.5 % (11.7-14.2); RDW Standard Deviation 59.6 fL (35.1-46.3); White Blood Cell Count 9.51 K/mm3 (4.00-11.30)
[2018-05-21 16:35] LABS: Alanine Aminotransfer (ALT/SGP 32 U/L (12-78); Albumin, Blood 3.1 g/dL (3.4-5.0); Albumin/Globulin Ratio 0.7 (0.8-1.8); Alk Phos 140 U/L (50-136); Anion Gap 7 mmol/L (6-16); Aspartate Aminotrans (AST/SGOT 58 U/L (12-37); Bilirubin, Total 1.3 mg/dL (0.1-1.0); Blood Urea Nitrogen 13 mg/dL (8-24); Bun/Creatinine Ratio 18.8 (12.0-20.0); CO2, Blood 27 mmol/L (21-32); Calcium, Blood 7.8 mg/dL (8.5-10.1); Chloride, Blood 97 mmol/L (98-108); Creatinine, Blood 0.69 mg/dL (0.40-1.00); Globulin, Blood 4.2 g/dL (2.2-4.0); Glomerular Filtration Rate >60 (60-); Glucose, Blood 165 mg/dL (70-99); Potassium, Blood 4.2 mmol/L (3.5-5.5); Sodium, Blood 131 mmol/L (136-145); Total Protein, Blood 7.3 g/dL (6.4-8.2); Troponin I <0.015 ng/mL (0.000-0.040)
[2018-05-21 20:17] LABS: Digoxin (Lanoxin) <0.06 ug/mL (0.80-2.00)
--- NOTE | 2018-05-21 21:34 | NUR ---
2046 PT ARRIVED FROM ER VIA GURNEY FROM ER IN STABLE CONDITION. PT REPORTS SOB THAT INCREASES WITH EXERTION, ON 2L NC O2 AT 96%. PT REPORTS ALL OVER CHRONIC ACHES, GOT NORCO IN ER. NO OTHER APPARENT SIGNS OF DISTRESS. CALL LIGHT IS IN REACH.
--- NOTE | 2018-05-21 21:39 | NUR ---
TELE IS AFIB AT 100 PER PCU SLUBBER HAND.
[2018-05-22 05:06] LABS: Hematocrit 29.5 % (33.0-51.0); Hemoglobin 9.6 g/dL (11.5-16.0); Mean Corpuscular HGB 33.8 pg (26.0-34.0); Mean Corpuscular HGB Conc 32.5 g/dL (31.5-36.5); Mean Corpuscular Volume 104 fL (80-100); Mean Platelet Volume 10.1 fL (9.1-12.4); Platelet Count 76 K/mm3 (150-400); RDW Coefficient Variation 15.6 % (11.7-14.2); RDW Standard Deviation 59.1 fL (35.1-46.3); Red Blood Cell Count 2.84 M/mm3 (3.80-5.20); White Blood Cell Count 7.35 K/mm3 (4.00-11.30)
[2018-05-22 05:31] LABS: Alanine Aminotransfer (ALT/SGP 25 U/L (12-78); Albumin, Blood 2.7 g/dL (3.4-5.0); Albumin/Globulin Ratio 0.8 (0.8-1.8); Alk Phos 104 U/L (50-136); Anion Gap 8 mmol/L (6-16); Aspartate Aminotrans (AST/SGOT 44 U/L (12-37); Bilirubin, Total 1.4 mg/dL (0.1-1.0); Blood Urea Nitrogen 14 mg/dL (8-24); Bun/Creatinine Ratio 19.9 (12.0-20.0); CO2, Blood 26 mmol/L (21-32); Calcium, Blood 7.5 mg/dL (8.5-10.1); Chloride, Blood 97 mmol/L (98-108); Creatinine, Blood 0.71 mg/dL (0.40-1.00); Globulin, Blood 3.3 g/dL (2.2-4.0); Glomerular Filtration Rate >60 (60-); Glucose, Blood 139 mg/dL (70-99); Potassium, Blood 3.8 mmol/L (3.5-5.5); Sodium, Blood 131 mmol/L (136-145)
--- NOTE | 2018-05-22 06:09 | NUR ---
0000 PT LYING IN BED, AWAKE, WATCHING TV. NO APPARENT SIGNS OF DISTRESS. CALL LIGHT IS IN REACH.
--- NOTE | 2018-05-22 06:10 | NUR ---
0233 PT REQUESTED AND RECIEVED PAIN MEDS, WILL EVAL FOR EFFECT. NO OTHER APPARENT SIGNS OF DISTRESS. CALL LIGHT IS IN REACH.
--- NOTE | 2018-05-22 06:10 | NUR ---
0330 PT LYING IN BED, AWAKE, NO APPARENT SIGNS OF DISTRESS. CALL LIGHT IS IN REACH. WATCHING TV.
--- NOTE | 2018-05-22 06:12 | NUR ---
PT IS AAO X 4, REPORTS SOB THAT INCREASES WITH EXERTION, ON 2L O2 NC AT 96%. PT REPORTS GERNERALIZED ALL OVER PAIN, GOT NORCO X 2. PT TO HAVE THORACENTESIS TODAY.
--- NOTE | 2018-05-22 06:13 | NUR ---
PT LYING IN BED, AWAKE, WATCHING TV. NO APPARENT SIGNS OF DISTRESS. CALL LIGHT IS IN REACH. NO OTHER CHANGES THIS SHIFT.
[2018-05-22 09:06] LABS: International Normalized Ratio 1.18; Prothrombin Time Results 12.3 Sec (9.7-11.5)
[2018-05-22 10:38] LABS: Glucose, Body Fluid 160 mg/dL; Lactate Dehydrogenase, Body Fl 69 U/L; Protein, Body Fluid 1.8 g/dL; Triglycerides, Body Fluid 15 mg/dL
[2018-05-22 10:42] LABS: pH, Body Fluid 7.3
[2018-05-22 10:43] LABS: Automated BF WBC Count 0.506 K/mm3 (0-999); Body Fluid WBC Count 506 /mm3 (0-999)
[2018-05-22 11:06] LABS: Appearance, Body Fluid Clear (Clear); Color, Body Fluid Yellow (None-Yellow); RBC Count, Body Fluid 448 /mm3 (0-0)
[2018-05-22 11:21] LABS: Total Cell Count, Body Fluid 100
--- NOTE | 2018-05-22 18:35 | NUR ---
SHIFT SUMMARY PT AXO, PLEASANT AND COOPERATIVE WITH CARE. 1 SBA FOR AMBULATION. PT HAD THORACENTESIS THIS SHIFT, SEE NOTE AND LABS. VSS. PT ON RA SATING 95-100% NO ACUTE CHANGES THIS SHIFT. PT STATES THAT SHE FEELS BETTER AFTER PROCEDURE. PRINTED CHF EDUCATION PROVIDED TO PATIENT, CONTINUE TO REINFORCE. PT UP TO CHAIR MULTIPLE TIMES THROUGHOUT THE DAY AND IS AMBULATING AROUND THE UNIT AT THIS TIME. BED IN LOW POSITION, CALL LIGHT WITHIN REACH, NON-SLIP SOCKS ON.
--- NOTE | 2018-05-23 04:04 | NUR ---
SHIFT SUMMARY NO CHANGES THIS SHIFT. PT HAS RESTED MOST OF THE NIGHT. MEDICATED X1 FOR GENERALIZED PAIN R/T TO ARTHRITIS. PT UP AND AMBULATING THE HALLWAY WITH AID THIS SHIFT, SHE TOLERATED WELL. PT HAS REMAINED STABLE POST THORANCENTESIS, BANDAID TO SITE C/D/I. CHF EDUCATION PROVIDED BY SAMIRA RN. PT HAS BEEN STUDYING THE MATERIAL PROVIDED. RESTFUL NIGHT. WILL CONTINUE TO MONITOR AND REPORT TO ONCOMING RN.
--- NOTE | 2018-05-23 18:23 | NUR ---
SHIFT SUMMARY PT AXO, PLEASANT AND COOPERATIVE WITH CARE. NO ACUTE CHANGES THIS SHIFT. PT COMPLAINED OF PAIN IN SHOULDER AND GENERALIZED PAIN. MEDICATED PER EMAR. PT AMULATED TO NURSE STATION WITH SBA. PT HAS HAD 1500ML SO FAR THIS SHIFT HAS BEEN EDUCATED THAT SHE HAS ONLY 300ML REMAINING UNITL TOMORROW MORNING. PT UP TO A CHAIR FOR MOST OF THE DAY. BED IN LOW POSITION, CALL LIGHT WITHIN REACH.
--- NOTE | 2018-05-24 04:49 | NUR ---
SHIFT SUMMARY NO CHANGES THIS SHIFT. PT HAS BEEN AWAKE FOR MOST OF THE NIGHT MOSTLY READING BOOKS, AND DOING CROSSWORD PUZZLES. SHE REPORTS THAT THE DOXAPIN GIVEN AT 2100 DID NOT HELP HER SLEEP. PT HAD A SHOWER THIS SHIFT, AND HAS BEEN UP AND AMBULATING IN HER ROOM AND THE HALLWAY INDEPENDENTLY. PT IS STEADY ON HER FEET. PT HAS MAINTAINED HER 1800 ML FLUID RESTRICTION. TELE IN PLACE, AFIB 77. PT A/OX4, PLESANT WITH CARE. ASSESSMENT UNCHANGED. WILL CONTINUE TO MONITOR AND REPORT TO ONCOMING RN.
[2018-05-24 10:19] LABS: BASOPHILS ABSOLUTE AUTO 0.03 K/mm3 (0.00-0.23); BASOPHILS PERCENT AUTO 1 % (0-2); EOSINOPHILS ABSOLUTE AUTO 0.21 K/mm3 (0.00-0.68); EOSINOPHILS PERCENT AUTO 4 % (0-6); Hematocrit 30.1 % (33.0-51.0); Hemoglobin 9.8 g/dL (11.5-16.0); IMMATURE GRAN ABSOLUTE AUTO 0.01 K/mm3 (0.00-0.10); IMMATURE GRAN PERCENT AUTO 0 % (0-1); LYMPHOCYTES ABSOLUTE AUTO 0.98 K/mm3 (0.84-5.20); LYMPHOCYTES PERCENT AUTO 19 % (21-46); MONOCYTES ABSOLUTE AUTO 0.69 K/mm3 (0.16-1.47); MONOCYTES PERCENT AUTO 13 % (4-13); Mean Corpuscular HGB 34.4 pg (26.0-34.0); Mean Corpuscular HGB Conc 32.6 g/dL (31.5-36.5); Mean Corpuscular Volume 106 fL (80-100); NEUTROPHILS ABSOLUTE AUTO 3.28 K/mm3 (1.96-9.15); NEUTROPHILS PERCENT AUTO 63 % (41-73); Platelet Count 81 K/mm3 (150-400); RDW Coefficient Variation 15.4 % (11.7-14.2); RDW Standard Deviation 60.2 fL (35.1-46.3); Red Blood Cell Count 2.85 M/mm3 (3.80-5.20)
--- NOTE | 2018-05-24 16:13 | NUR ---
SHIFT SUMMARY PT A&OX4. CALM AND COOPERATIVE WITH CARE. PT RESTING IN BED DURING SHIFT, APPEARS TO BE SLEEPING INTERMITTENTLY. PT UP TO BATHROOM IND DURING SHIFT. PT REPORTS PAIN IN RIGHT SHOULDER AND "ARTHRITIS" PAIN IN HIPS AND OTHER JOINTS, MEDICATED PER EMAR. SPO2 >90% ON RA, LS DIM IN BASES, SOB WITH EXERTION. CHEST XRAY COMPLETED DURING SHIFT. PT DENIES N/V DURING SHIFT. PT RECEIVING PO ANTIBIOTICS. IV LASIX. PT ON FLUID RESTRICTIONS OF 1500, CLARIFIED ORDERS WITH DR SONG, 1500 VS 1800, CONTINUE WITH 1500 ML FLUIDS RESTRICTIONS. PT EDUCATED ON UPDATED RESTRICTION. ELEVATED BP NOTE, OTHER VSS. NO OTHER ACUTE CHANGES NOTED DURING SHIFT. WILL CONTINUE TO MONITOR UNTIL REPORT GIVEN TO ONCOMING RN.
--- NOTE | 2018-05-24 17:01 | NUR ---
DISCHARGE ORDERS PLACED BY DR SONG. VAIBHAV IN TO TALK TO PT. PT ASKING TO STAY ANOTHER NIGHT. DR SONG NOTIFIED, NEW ORDERS TO HOLD DISCHARGE TONIGHT AND CONTINUE WITH DISCHARGE IN THE AM.
--- NOTE | 2018-05-25 02:17 | NUR ---
CALLED PT REFUSING TELEMETRY, STATES "THERE IS NO POINT IN IT WHEN I'M GOING HOME IN THE MORNING". CONTACTED AND RECEIVED APPROVAL TO DC TELEMETRY. PT RESTING AND WITHIN NORMAL LIMITS. NO REMARKABLE CONCERNS OR SYMPTOMS. WILL CONTINUE TO MONITOR.
--- NOTE | 2018-05-25 05:07 | NUR ---
SHIFT SUMMARY EXPECTED TO DC IN THE AM, DC PAPERS PREPARED. SHE WILL BE DC'D ON 5 DAYS OF AZITHROMYCIN FOR PNEUMONIA CONCERNS. PT EXPRESSD PAIN FROM HER CHRONIC ARTHRITIC CONDITION. MORNING LABS SHOW HGB DOWNTRENDING FROM 10.4 ON ADMIT TO 8.8 THIS MORNING, HCT DOWNTRENDING FROM 34.3 ON ADMIT TO 29.3 THIS MORNING. PT IS ASYMPTOMATIC. PT REFUSED TELEMETRY MONITORING, RECEIVED APPROVAL FROM NIGHT HOSPITALIST TO DC TELEMETRY. PT IS ON A 1500 ML FLUID RESTRICTION (CHF EXACERBATION). SHE HAS A 20 IN RT. AC THAT IS SALINE LOCKED. PT IS ACHS BUT HAS NOT REQUIRED INSULIN COVERAGE. SHE IS A&O X4 AND INDEPENDENT IN THE ROOM.
--- NOTE | 2018-05-25 05:25 | NUR ---
SHIFT SUMMARY PT EXPECTED TO DC IN THE AM. DISCHARGE PAPERS ARE PREPARED. PT REFUSED TO WEAR TELEMETRY SHE FELT IT WAS UNNECESSARY. RECEIVED APPROVAL FROM NIGHT HOSPITALIST TO DC TELEMETRY. PT IS ON A 1500 ML FLUID RESTRICTION THAT SHE HAS BEEN COMPLIANT WITH (DX: CHF EXACERBATION). PT EXPRESSES GENERAL PAIN FROM CHRONIC ARTHRITIS. PT UNDERWENT A RECENT THORACENTESIS PROCEDURE REMOVING 1 L OF FLUID. PT WILL DC ON A 5 DAY REGIMEN OF AZITHROMYCIN DUE TO CONCERNS OF PNEUMONIA. PT IS ACHS, BUT HAS NOT REQUIRED INSULIN COVERAGE.
[2018-05-25] MEDS ORDERED: Zithromax250 MG PO (08:19)
--- NOTE | 2018-05-25 08:58 | NUR ---
D/C INSTRUCTIONS PROVIDED AND EXPLAINED. IV REMOVED. PT D/C VIA WHEELCHAIR WITH FILM REPLACEMENT ORDERER AND FRIEND.
== END 2018-05-25 08:49 | disposition home or self-care (01) | DRG 291 ==
LOC: ER 15:42 → MEDS 19:57 → ENPENDDIS 05-25 08:00 → MEDS 05-25 08:49
PROVIDERS: Family Medicine; Internal Medicine; Physician Assistant; ADMIT Internal Medicine
PROC: 0W9B3ZZ Drainage of Left Pleural Cavity, Percutaneous Approach (ICD-10-PCS; principal; 2018-05-22)
DX: I11.0 Hypertensive heart disease with heart failure (principal); I50.31 Acute diastolic (congestive) heart failure; J96.01 Acute respiratory failure with hypoxia; J90 Pleural effusion, not elsewhere classified; D69.6 Thrombocytopenia, unspecified; I48.2 Chronic atrial fibrillation; E11.9 Type 2 diabetes mellitus without complications; J20.9 Acute bronchitis, unspecified; Z88.1 Allergy status to other antibiotic agents; Z88.0 Allergy status to penicillin; Z88.2 Allergy status to sulfonamides; Z88.8 Allergy status to other drugs, medicaments and biological substances; Z86.73 Personal history of transient ischemic attack (TIA), and cerebral infarction without residual deficits; Z79.01 Long term (current) use of anticoagulants; Z79.4 Long term (current) use of insulin; Z79.899 Other long term (current) drug therapy
CPT/HCPCS: 32555; 36415; 71045; 71046; 80053; 80162; 82042; 82945; 82947; 83615; 83880; 83986; 84157; 84478; 84484; 85025; 85027; 85610; 85730; 87070; 87205; 88108; 89051; 93005; 93010; 94640; 94760; 99285-25; J1940

== ENCOUNTER 2018-06-23 13:42 | Emergency (ER) | payer OTHER ==
[~2018-06-23] VITALS: Ht 160 cm; Wt 67.6 kg
[~2018-06-23 13:42] MED LIST changes: +Zithromax250 MG PO
[2018-06-23 14:34] LABS: BASOPHILS ABSOLUTE AUTO 0.05 K/mm3 (0.00-0.23); BASOPHILS PERCENT AUTO 1 % (0-2); EOSINOPHILS ABSOLUTE AUTO 0.21 K/mm3 (0.00-0.68); EOSINOPHILS PERCENT AUTO 3 % (0-6); Hematocrit 35.8 % (33.0-51.0); Hemoglobin 11.7 g/dL (11.5-16.0); IMMATURE GRAN ABSOLUTE AUTO 0.03 K/mm3 (0.00-0.10); IMMATURE GRAN PERCENT AUTO 0 % (0-1); LYMPHOCYTES ABSOLUTE AUTO 1.17 K/mm3 (0.84-5.20); LYMPHOCYTES PERCENT AUTO 16 % (21-46); MONOCYTES ABSOLUTE AUTO 0.64 K/mm3 (0.16-1.47); MONOCYTES PERCENT AUTO 9 % (4-13); Mean Corpuscular HGB Conc 32.7 g/dL (31.5-36.5); Mean Corpuscular Volume 104 fL (80-100); Mean Platelet Volume 10.3 fL (9.1-12.4); NEUTROPHILS ABSOLUTE AUTO 5.13 K/mm3 (1.96-9.15); NEUTROPHILS PERCENT AUTO 71 % (41-73); Platelet Count 80 K/mm3 (150-400); RDW Coefficient Variation 14.6 % (11.7-14.2); RDW Standard Deviation 56.1 fL (35.1-46.3); Red Blood Cell Count 3.44 M/mm3 (3.80-5.20); White Blood Cell Count 7.23 K/mm3 (4.00-11.30)
[2018-06-23 15:00] LABS: Alanine Aminotransfer (ALT/SGP 30 U/L (12-78); Albumin, Blood 3.1 g/dL (3.4-5.0); Albumin/Globulin Ratio 0.8 (0.8-1.8); Alk Phos 140 U/L (50-136); Anion Gap 7 mmol/L (6-16); Aspartate Aminotrans (AST/SGOT 45 U/L (12-37); Blood Urea Nitrogen 11 mg/dL (8-24); Bun/Creatinine Ratio 13.6 (12.0-20.0); CO2, Blood 25 mmol/L (21-32); Calcium, Blood 8.1 mg/dL (8.5-10.1); Chloride, Blood 105 mmol/L (98-108); Creatinine, Blood 0.81 mg/dL (0.40-1.00); Globulin, Blood 3.7 g/dL (2.2-4.0); Glomerular Filtration Rate >60 (60-); Glucose, Blood 224 mg/dL (70-99); Potassium, Blood 4.2 mmol/L (3.5-5.5); Sodium, Blood 137 mmol/L (136-145); Total Protein, Blood 6.8 g/dL (6.4-8.2)
[2018-06-23 15:01] LABS: Troponin I 0.027 ng/mL (0.000-0.040)
== END 2018-06-23 17:24 | disposition home or self-care (01) ==
LOC: ER 13:42
PROVIDERS: Emergency Medicine
DX: I11.0 Hypertensive heart disease with heart failure (principal); I50.9 Heart failure, unspecified; J90 Pleural effusion, not elsewhere classified; E11.9 Type 2 diabetes mellitus without complications; Z86.73 Personal history of transient ischemic attack (TIA), and cerebral infarction without residual deficits; Z96.653 Presence of artificial knee joint, bilateral; Z88.0 Allergy status to penicillin; Z88.1 Allergy status to other antibiotic agents; Z88.2 Allergy status to sulfonamides; Z79.4 Long term (current) use of insulin; Z79.2 Long term (current) use of antibiotics; Z79.899 Other long term (current) drug therapy; Z87.891 Personal history of nicotine dependence
CPT/HCPCS: 36415; 71046; 80053; 83880; 84484; 85025; 93005; 93010; 96374; 99285-25; J1940

== ENCOUNTER 2018-06-28 14:11 | Inpatient (IN) | payer OTHER ==
[~2018-06-28] VITALS: Ht 160 cm; Wt 72.6 kg
[2018-06-28 14:54] LABS: BASOPHILS ABSOLUTE AUTO 0.05 K/mm3 (0.00-0.23); BASOPHILS PERCENT AUTO 1 % (0-2); EOSINOPHILS ABSOLUTE AUTO 0.15 K/mm3 (0.00-0.68); EOSINOPHILS PERCENT AUTO 2 % (0-6); Hematocrit 37.7 % (33.0-51.0); Hemoglobin 12.2 g/dL (11.5-16.0); IMMATURE GRAN ABSOLUTE AUTO 0.03 K/mm3 (0.00-0.10); IMMATURE GRAN PERCENT AUTO 0 % (0-1); LYMPHOCYTES ABSOLUTE AUTO 1.29 K/mm3 (0.84-5.20); LYMPHOCYTES PERCENT AUTO 17 % (21-46); MONOCYTES ABSOLUTE AUTO 0.69 K/mm3 (0.16-1.47); MONOCYTES PERCENT AUTO 9 % (4-13); Mean Corpuscular HGB 33.4 pg (26.0-34.0); Mean Corpuscular HGB Conc 32.4 g/dL (31.5-36.5); Mean Corpuscular Volume 103 fL (80-100); Mean Platelet Volume 10.6 fL (9.1-12.4); NEUTROPHILS ABSOLUTE AUTO 5.39 K/mm3 (1.96-9.15); NEUTROPHILS PERCENT AUTO 71 % (41-73); Platelet Count 64 K/mm3 (150-400); RDW Coefficient Variation 14.4 % (11.7-14.2); Red Blood Cell Count 3.65 M/mm3 (3.80-5.20)
[2018-06-28 15:24] LABS: Troponin I 0.035 ng/mL (0.000-0.040)
[2018-06-28 15:25] LABS: Alanine Aminotransfer (ALT/SGP 26 U/L (12-78); Albumin, Blood 3.2 g/dL (3.4-5.0); Albumin/Globulin Ratio 0.9 (0.8-1.8); Alk Phos 103 U/L (50-136); Anion Gap 8 mmol/L (6-16); Aspartate Aminotrans (AST/SGOT 55 U/L (12-37); Blood Urea Nitrogen 12 mg/dL (8-24); Bun/Creatinine Ratio 16.3 (12.0-20.0); CO2, Blood 27 mmol/L (21-32); Calcium, Blood 8.3 mg/dL (8.5-10.1); Chloride, Blood 105 mmol/L (98-108); Creatinine, Blood 0.73 mg/dL (0.40-1.00); Globulin, Blood 3.7 g/dL (2.2-4.0); Glomerular Filtration Rate >60 (60-); Glucose, Blood 172 mg/dL (70-99); Potassium, Blood 4.5 mmol/L (3.5-5.5); Sodium, Blood 140 mmol/L (136-145); Total Protein, Blood 6.9 g/dL (6.4-8.2)
[2018-06-29 03:40] LABS: Adenovirus Not Detected (NOT DETECT); Bordetella pertussis Not Detected (NOT DETECT); Chlamydophila pneumoniae Not Detected (NOT DETECT); Coronavirus 229E Not Detected (NOT DETECT); Coronavirus HKU1 Not Detected (NOT DETECT); Coronavirus NL63 Not Detected (NOT DETECT); Coronavirus OC43 Not Detected (NOT DETECT); Human Metapneumovirus Not Detected (NOT DETECT); Human Rhinovirus/Enterovirus Not Detected (NOT DETECT); Influenza A Not Detected (NOT DETECT); Influenza A/2009-H1 Not Detected (NOT DETECT); Influenza A/H1 Not Detected (NOT DETECT); Influenza A/H3 Not Detected (NOT DETECT); Influenza B Not Detected (NOT DETECT); Mycoplasma pneumoniae Not Detected (NOT DETECT); Parainfluenza Virus 1 Not Detected (NOT DETECT); Parainfluenza Virus 2 Not Detected (NOT DETECT); Parainfluenza Virus 3 Not Detected (NOT DETECT); Parainfluenza Virus 4 Not Detected (NOT DETECT); Respiratory Syncytial Virus Not Detected (NOT DETECT)
[2018-06-29 04:38] LABS: BASOPHILS ABSOLUTE AUTO 0.01 K/mm3 (0.00-0.23); BASOPHILS PERCENT AUTO 0 % (0-2); EOSINOPHILS PERCENT AUTO 0 % (0-6); Hematocrit 34.4 % (33.0-51.0); Hemoglobin 11.1 g/dL (11.5-16.0); IMMATURE GRAN ABSOLUTE AUTO 0.02 K/mm3 (0.00-0.10); IMMATURE GRAN PERCENT AUTO 0 % (0-1); LYMPHOCYTES ABSOLUTE AUTO 0.63 K/mm3 (0.84-5.20); LYMPHOCYTES PERCENT AUTO 13 % (21-46); MONOCYTES ABSOLUTE AUTO 0.14 K/mm3 (0.16-1.47); MONOCYTES PERCENT AUTO 3 % (4-13); Mean Corpuscular HGB 33.2 pg (26.0-34.0); Mean Corpuscular HGB Conc 32.3 g/dL (31.5-36.5); Mean Corpuscular Volume 103 fL (80-100); Mean Platelet Volume 10.5 fL (9.1-12.4); NEUTROPHILS ABSOLUTE AUTO 4.17 K/mm3 (1.96-9.15); NEUTROPHILS PERCENT AUTO 84 % (41-73); Platelet Count 63 K/mm3 (150-400); RDW Coefficient Variation 14.3 % (11.7-14.2); RDW Standard Deviation 54.3 fL (35.1-46.3); Red Blood Cell Count 3.34 M/mm3 (3.80-5.20); White Blood Cell Count 4.97 K/mm3 (4.00-11.30)
[2018-06-29 05:10] LABS: Anion Gap 8 mmol/L (6-16); CO2, Blood 27 mmol/L (21-32); Chloride, Blood 102 mmol/L (98-108); Glucose, Blood 192 mg/dL (70-99); Potassium, Blood 3.9 mmol/L (3.5-5.5); Sodium, Blood 137 mmol/L (136-145)
[2018-06-29 05:11] LABS: Alanine Aminotransfer (ALT/SGP 25 U/L (12-78); Albumin, Blood 2.8 g/dL (3.4-5.0); Albumin/Globulin Ratio 0.7 (0.8-1.8); Alk Phos 91 U/L (50-136); Aspartate Aminotrans (AST/SGOT 35 U/L (12-37); Bilirubin, Total 1.1 mg/dL (0.1-1.0); Blood Urea Nitrogen 13 mg/dL (8-24); Bun/Creatinine Ratio 15.7 (12.0-20.0); Calcium, Blood 8.1 mg/dL (8.5-10.1); Creatinine, Blood 0.83 mg/dL (0.40-1.00); Globulin, Blood 3.8 g/dL (2.2-4.0); Glomerular Filtration Rate >60 (60-); Total Protein, Blood 6.6 g/dL (6.4-8.2)
--- NOTE | 2018-06-29 07:59 | NUR ---
SHIFT SUMMARY PT A&O X4 T/O SHIFT. ADMITTED FROM ER APPROX. 2300. SBA TO BED AND TOILET. 2L VIA NC; PT DENIES SOB AT REST. CHRONIC PAIN IN BACK AND L SHOUDLER MANAGED PER EMAR. SCD'S TO BLE'S. CALL LIGHT IN REACH; PT DEMONSTRATES USE. REPORT GIVEN TO DAY SHIFT RN.
--- NOTE | 2018-06-29 08:05 | NUR ---
pt medication to pharmacy. pt home medication, [place] 5/325, bottle taken to pharmacy to be stored in safe. Receipt placed on pt chart. pt informed she will need slip/ID to hot die picker medication on discharge; pt sts understanding.
--- NOTE | 2018-06-29 10:10 | NUR ---
Ira was alert, friendly and social. Her breathing was mildly labored with no signs of obvious distress or pain. She did report anxiety relating to the circumstances leading up to her hospitalization and expressed being nervous over the prosepect of returning home with no power or heat source. I provided compassionate listening, reassurance and audible prayer for healing, comfort and recovered strength. I also offered light education on the Alert Bracelet option and volunteered to bring her a brochure later for review. She expressed appreciation.
[2018-06-29] MEDS ORDERED: SPIR50 PO (11:48)
--- NOTE | 2018-06-29 11:50 | NUR ---
TELEPHONE CALL WITH [facility] CONFIRMING PT NEEDS TO TAKE SPIRONOLACTONE 50 MG 1 TAB PO DAILY.
--- NOTE | 2018-06-29 18:36 | NUR ---
SHIFT SUMMARY PT A&OX4, VSS, DENIES SOB AT REST, REP SOB W/EXERT - AMB TO BRP/CHAIR FOR MEALS. RA T/O SHIFT. PAIN MANAGED WITH 5 MG NORCO. GEMMA PO, DENIES N&V. WCTM & TX PER EMAR UNTIL REPORT GIVEN TO ONCOMING ELOISE RN.
--- NOTE | 2018-06-29 19:00 | NUR ---
recvd report from previous shift rn frida, pt watching tv, bed rails up, a/o x 4, pleasant, call light within reach, bed in lowest position
--- NOTE | 2018-06-30 05:04 | NUR ---
shift summary; vss, no acute changes, pt remained a/0 x 4, pleasant. pt reports pain in the left shoulder, medicated per mar with control of pain acceptable to the pt. pt requested small ice pack for shoulder which was provided. pt up to bathroom independently, called for assistance with slipper on/off. pt did not sleep during this shift, awake with TV on and/or reading. pt states she has insomnia at baseline. pt voided x 3 this shift.
--- NOTE | 2018-06-30 06:00 | NUR ---
pt transferred to imaging for CT via wheelchair
--- NOTE | 2018-06-30 06:20 | NUR ---
pt returned to room via wheelchair from imaging, requests to have peripheral IV place for study removed. after encouraging pt to leave peripheral IV for any necessary medication, pt refused. IV removed WNL.
--- NOTE | 2018-06-30 07:05 | NUR ---
REPORT FROM ÓSCAR ENGEL. ASSUMED PT CARE. PT SITTING UP IN BED.
[2018-06-30 08:10] LABS: BASOPHILS ABSOLUTE AUTO 0.03 K/mm3 (0.00-0.23); BASOPHILS PERCENT AUTO 0 % (0-2); EOSINOPHILS ABSOLUTE AUTO 0.22 K/mm3 (0.00-0.68); EOSINOPHILS PERCENT AUTO 2 % (0-6); Hematocrit 34.2 % (33.0-51.0); Hemoglobin 11.2 g/dL (11.5-16.0); IMMATURE GRAN ABSOLUTE AUTO 0.05 K/mm3 (0.00-0.10); IMMATURE GRAN PERCENT AUTO 0 % (0-1); LYMPHOCYTES ABSOLUTE AUTO 1.91 K/mm3 (0.84-5.20); LYMPHOCYTES PERCENT AUTO 16 % (21-46); MONOCYTES PERCENT AUTO 10 % (4-13); Mean Corpuscular HGB 33.6 pg (26.0-34.0); Mean Corpuscular HGB Conc 32.7 g/dL (31.5-36.5); Mean Corpuscular Volume 103 fL (80-100); Mean Platelet Volume 10.3 fL (9.1-12.4); NEUTROPHILS ABSOLUTE AUTO 8.31 K/mm3 (1.96-9.15); NEUTROPHILS PERCENT AUTO 72 % (41-73); Platelet Count 91 K/mm3 (150-400); RDW Coefficient Variation 14.3 % (11.7-14.2); RDW Standard Deviation 54.1 fL (35.1-46.3); Red Blood Cell Count 3.33 M/mm3 (3.80-5.20); White Blood Cell Count 11.62 K/mm3 (4.00-11.30)
--- NOTE | 2018-06-30 08:11 | NUR ---
PT MEDICATED PER EMAR. ASSESSMENT CHARTED. PT SITTING UP IN CHAIR EATING BREAKFAST. CALL LIGHT IN REACH. DENIES NEEDS. PT ALERT AND ORIENTED. PT CONCERNED ABOUT AREA TO LEFT AC (WHERE IV INFILTRATED). THIS RN EXPLAINE TO PT THAT IT WILL TAKE TIME FOR BODY TO ABSORB THE CONTRAST. PT USING WARM COMPRESS INTERMITTENTLY.
[2018-06-30 08:23] LABS: International Normalized Ratio 1.63; Prothrombin Time Results 16.5 Sec (9.7-11.5)
--- NOTE | 2018-06-30 08:50 | NUR ---
NEW DRESSING TO IV SITE (LEFT WRIST). AREA CLEANED PRIOR TO NEW TEGADERM BEING PLACED.
--- NOTE | 2018-06-30 09:05 | NUR ---
PT MEDICATED WITH NORCO FOR C/O PAIN TO BACK AND SHOULDER.
--- NOTE | 2018-06-30 09:40 | NUR ---
PT APPEARS TO BE MORE COMFORTABLE. PT PAIN 4/10. RESTING AT THIS TIME. LIGHTS DIMMED FOR COMFORT. DOOR CLOSED FOR PRIVACY.
--- NOTE | 2018-06-30 13:35 | NUR ---
PT MEDICATED WITH NORCO FOR PAIN, WILL CONT TO MONITOR.
--- NOTE | 2018-06-30 14:02 | NUR ---
Met pt. in bed resting seems to be doing well but weak encouragedmpt. and prayed for her.
--- NOTE | 2018-06-30 14:50 | NUR ---
PT RESTING IN POSITION OF COMFOR. WILL CONT TO MONITOR.
--- NOTE | 2018-06-30 17:52 | NUR ---
PT SITTING UP IN CHAIR AWAITING DINNER TRAY. PT MEDICATED PER EMAR. PT WATCHING TV.
[2018-07-01 05:12] LABS: BASOPHILS ABSOLUTE AUTO 0.05 K/mm3 (0.00-0.23); BASOPHILS PERCENT AUTO 1 % (0-2); EOSINOPHILS ABSOLUTE AUTO 0.23 K/mm3 (0.00-0.68); EOSINOPHILS PERCENT AUTO 3 % (0-6); Hematocrit 33.4 % (33.0-51.0); Hemoglobin 10.7 g/dL (11.5-16.0); IMMATURE GRAN ABSOLUTE AUTO 0.03 K/mm3 (0.00-0.10); IMMATURE GRAN PERCENT AUTO 0 % (0-1); LYMPHOCYTES ABSOLUTE AUTO 1.61 K/mm3 (0.84-5.20); LYMPHOCYTES PERCENT AUTO 21 % (21-46); MONOCYTES ABSOLUTE AUTO 0.96 K/mm3 (0.16-1.47); MONOCYTES PERCENT AUTO 13 % (4-13); Mean Corpuscular HGB 33.1 pg (26.0-34.0); Mean Corpuscular Volume 103 fL (80-100); Mean Platelet Volume 9.9 fL (9.1-12.4); NEUTROPHILS ABSOLUTE AUTO 4.82 K/mm3 (1.96-9.15); NEUTROPHILS PERCENT AUTO 63 % (41-73); Platelet Count 84 K/mm3 (150-400); RDW Coefficient Variation 14.6 % (11.7-14.2); RDW Standard Deviation 56.1 fL (35.1-46.3); Red Blood Cell Count 3.23 M/mm3 (3.80-5.20)
--- NOTE | 2018-07-01 06:15 | NUR ---
PT VSS T/O NIGHT. SATS >95% ON RA. PT DOES REP SOME SOB W/EXERTION. PT MED FOR R SHOULDER PAIN X1 W/REP RELIEF. PT UP INDEP IN ROOM W/SBA PRN. PT ENC TO USE FWW FOR SAFETY R/T DYPSNEA. PT USING CALL LIGHT FOR ASSISTANCE, WILL CONT TO MONITOR UNTIL REP GIVEN TO ONCOMING RN.
--- NOTE | 2018-07-01 07:00 | NUR ---
REPORT FROM ERVIN Borja RN. ASSUMED PT CARE.
--- NOTE | 2018-07-01 07:41 | NUR ---
PT SITTING UP IN BED. PT FINISHING NEB TREATMENT. CALL LIGHT IN REACH. ASSESSMENT CHARTED.
--- NOTE | 2018-07-01 08:03 | NUR ---
PT MEDICATED PER EMAR. NORCO PROVIDED FOR C/O PAIN TO SHOULDER 11/10. PT EATING BREAKFAST.
--- NOTE | 2018-07-01 08:15 | NUR ---
PT FINISHED WITH BREAKFAST. UP TO CHAIR. WARM BLANKETS PROVIDED.
--- NOTE | 2018-07-01 09:50 | NUR ---
PT SITTING UP IN CHAIR WORKING PUZZLES AND WATCHING TV. STATES PAIN IMPROVED. DENIES NEEDS.
--- NOTE | 2018-07-01 10:33 | NUR ---
DR PUGA TO ROOM. PLAN TO DC TODAY. PT HAS FRIEND GOING TO CHECK ON HOUSE TO SEE IF POWER ON.
--- NOTE | 2018-07-01 11:38 | NUR ---
Pt. is sitting in a chair , she reports doing well and may go home today, encouraged pt. and prayed for her.
--- NOTE | 2018-07-01 11:55 | NUR ---
pt sitting up in chair. lunch tray provided.
[2018-07-01] MEDS ORDERED: XARELTO15 MG PO (12:47)
--- NOTE | 2018-07-01 12:56 | NUR ---
pt medicated with norco for pain 12/11. lovenox given. ice water provided.
--- NOTE | 2018-07-01 13:00 | NUR ---
PT UP IN ROOM INDEPENDENTLY. GETTING DRESSED. PENDING DC.
--- NOTE | 2018-07-01 13:07 | NUR ---
IV REMOVED FROM LEFT WRIST. DRESSING PLACED. PT DRESSED AND SITTING IN CHAIR. FAMILY TO SALON ASSISTANT AT 3PM.
--- NOTE | 2018-07-01 14:50 | NUR ---
PT DC HOME WITH FAMILY. VERBALIZED UNDERSTANDING. ESCORTED OUT VIA WC.
== END 2018-07-01 14:49 | disposition home or self-care (01) | DRG 176 ==
LOC: ER 14:11 → ERHOLD 14:12 → SURS 23:00
PROVIDERS: Emergency Medicine; Family Medicine; ADMIT Internal Medicine
DX: I26.99 Other pulmonary embolism without acute cor pulmonale (principal); I50.32 Chronic diastolic (congestive) heart failure; I48.2 Chronic atrial fibrillation; I11.0 Hypertensive heart disease with heart failure; F41.9 Anxiety disorder, unspecified; K74.60 Unspecified cirrhosis of liver; E11.40 Type 2 diabetes mellitus with diabetic neuropathy, unspecified; D50.9 Iron deficiency anemia, unspecified; Z79.01 Long term (current) use of anticoagulants; Z86.73 Personal history of transient ischemic attack (TIA), and cerebral infarction without residual deficits; Z87.891 Personal history of nicotine dependence; Z66 Do not resuscitate; Z88.0 Allergy status to penicillin; Z88.2 Allergy status to sulfonamides; Z88.8 Allergy status to other drugs, medicaments and biological substances; Z79.4 Long term (current) use of insulin; Z79.899 Other long term (current) drug therapy
CPT/HCPCS: 36415; 71045; 71260; 80053; 82105; 83880; 84484; 85025; 85379; 85610; 85730; 87486; 87581; 87633; 87798; 93005; 93010; 94640; 94760; 96365; 96375; 99285-25; G0378; J0456; J2930; J7050; Q9967

== ENCOUNTER 2018-08-13 02:48 | Observation (INO) | payer OTHER ==
[~2018-08-13] VITALS: Ht 160 cm; Wt 63.7 kg
[~2018-08-13 02:48] MED LIST changes: +SPIR50 PO
[2018-08-13] MEDS ORDERED: PRAV20 PO (04:18)
[2018-08-13 04:54] LABS: EOSINOPHILS PERCENT AUTO 2 % (0-6); Hematocrit 32.5 % (33.0-51.0); Hemoglobin 10.7 g/dL (11.5-16.0); MONOCYTES PERCENT AUTO 10 % (4-13); Mean Corpuscular HGB Conc 32.9 g/dL (31.5-36.5); Mean Corpuscular Volume 103 fL (80-100); Mean Platelet Volume 12.1 fL (9.1-12.4); NEUTROPHILS ABSOLUTE AUTO 6.27 K/mm3 (1.96-9.15); NEUTROPHILS PERCENT AUTO 70 % (41-73); Platelet Count 57 K/mm3 (150-400); RDW Coefficient Variation 15.1 % (11.7-14.2); RDW Standard Deviation 57.8 fL (35.1-46.3); Red Blood Cell Count 3.15 M/mm3 (3.80-5.20)
[2018-08-13 04:56] LABS: BASOPHILS ABSOLUTE AUTO 0.04 K/mm3 (0.00-0.23); BASOPHILS PERCENT AUTO 0 % (0-2); EOSINOPHILS ABSOLUTE AUTO 0.19 K/mm3 (0.00-0.68); IMMATURE GRAN ABSOLUTE AUTO 0.05 K/mm3 (0.00-0.10); IMMATURE GRAN PERCENT AUTO 1 % (0-1); LYMPHOCYTES ABSOLUTE AUTO 1.44 K/mm3 (0.84-5.20); LYMPHOCYTES PERCENT AUTO 16 % (21-46); MONOCYTES ABSOLUTE AUTO 0.93 K/mm3 (0.16-1.47)
[2018-08-13 05:10] LABS: International Normalized Ratio 1.42; Prothrombin Time Results 14.6 Sec (9.7-11.5)
[2018-08-13 05:16] LABS: Albumin, Blood 3.2 g/dL (3.4-5.0); Albumin/Globulin Ratio 0.9 (0.8-1.8); Bilirubin, Total 0.6 mg/dL (0.1-1.0); Bun/Creatinine Ratio 32.8 (12.0-20.0); Calcium, Blood 8.3 mg/dL (8.5-10.1); Creatinine, Blood 1.19 mg/dL (0.40-1.00); Globulin, Blood 3.7 g/dL (2.2-4.0); Potassium, Blood 6.5 mmol/L (3.5-5.5); Total Protein, Blood 6.9 g/dL (6.4-8.2)
[2018-08-13 05:53] LABS: Magnesium, Blood 2.1 mg/dL (1.6-2.4)
[2018-08-13 05:54] LABS: Troponin I <0.015 ng/mL (0.000-0.040)
[2018-08-13 07:55] LABS: Bun/Creatinine Ratio 32.5 (12.0-20.0); Calcium, Blood 8.1 mg/dL (8.5-10.1); Creatinine, Blood 1.17 mg/dL (0.40-1.00); Potassium, Blood 5.6 mmol/L (3.5-5.5)
--- NOTE | 2018-08-13 10:05 | NUR ---
PT ARRIVES FROM ER PT ABLE TO STAND AND TRANSFER TO ICU BED UPON ARRIVAL. PT DENIES FEELING DIZZY WITH TRANSFER. DENIES ANY CHEST PAIN OR PRESSURE. AFIB ON MONITOR, RATE CONTROLLED IN THE 60S. PT. REPORTS CHRONIC PAIN T/O BODY PT STATES " I HAVE ARTHRITIS EVERYWHERE AND TAKE A PAIN PILL AT HOME". PT. CURRENTLY NPO, HOWEVER DID HAVE CLEAR LIQUIDS FOR BREAKFAST. PT. DENIES ANY N/V HOWEVER REPORTS BRIGHT RED BLOOD IN STOOL THAT STARTED 2 DAYS AGO. PT VSS UPON ARRIVAL TO UNIT. PT CURRENTLY ON RA. NO ACUTE DISTRESS NOTED. CALL LIGHT IN REACH. PT RESTING IN BED READING HER BOOK.
[2018-08-13 10:40] LABS: Hematocrit 30.5 % (33.0-51.0); Hemoglobin 9.7 g/dL (11.5-16.0)
--- NOTE | 2018-08-13 12:24 | NUR ---
PT ATTENDS CHANGED. SMALL SMEAR OF RED STOOL NOTED.
--- NOTE | 2018-08-13 12:24 | NUR ---
SPOKE WITH DR. GR UPDATED ON PT CONDITION. PER DR. GR CLEAR LIQUIDS OKAY, NPO AT MIDNIGHT FOR PLANS TO SCOPE TOMORROW AM.
[2018-08-13 16:36] LABS: Hematocrit 30.5 % (33.0-51.0); Hemoglobin 10.1 g/dL (11.5-16.0)
--- NOTE | 2018-08-13 17:27 | NUR ---
PT REQUESTING TO SIT UP ON BEDSIDE COMMODE PT. ASKING TO STAY ON BEDSIDE COMMODE FOR SOME TIME WHILE DRINKING GOLYTLY. PT. GAGGING WHILE DRINKING GOLYTLY AND EMESIS BAG PROVIDED. PT. PROVIDED WITH WARM BLANKET WHILE SITTING ON BEDSIDE COMMODE PER REQUEST. CALL LIGHT IN REACH.
--- NOTE | 2018-08-13 17:28 | NUR ---
SHIFT SUMMARY PT. HAD SMALL SMEARS OF RED STOOL T/O SHIFT. CURRENTLY SITTING ON BEDSIDE COMMODE VOIDING ALONG WITH HAVING SOME LIQUID STOOL. PT VSS REMAIN STABLE T/O SHIFT. PLANS FOR PT TO BE SCOPED TOMORROW PER DR. GR. CALL LIGHT IN REACH. REPORT TO ONCOMING RN.
--- NOTE | 2018-08-13 20:23 | NUR ---
ASSUMED CARE OF PT REPORT RCV'D FROM TORO SHINE. PT ALERT AND ORIENTED SITTING UP IN BED. PT IS DRINKING GOLYTELY PRESCRIBED WELL DINORA MIST. PT REPORTS FEELING NAUSEOUS FROM BOWEL PREP. PT CURRENTLY HAS CLEAR WATERY STOOL WITH SCANT AMOUNT OF BROWN. NO GI NOTED. PT WEARING ATTENDS ALTERNATING SITTING ON BEDSIDE COMMODE. PT REPORTS SLIGHT ABDOMINAL TENDERNESS ON PALPATION. BOWEL SOUNDS ACTIVE IN ALL 4 QUADRANTS. 20 G IN RAC, SL. VSS. SEE FULL SHIFT SUMMARY.
[2018-08-13 22:30] LABS: Hematocrit 33.9 % (33.0-51.0); Hemoglobin 11.2 g/dL (11.5-16.0)
--- NOTE | 2018-08-13 23:52 | NUR ---
MIDSHIFT SUMMARY PT CONTINUES TO HAVE MULTIPLE INCIDENCES OF INCONTINENT WATERY CLEAR/YELLOW STOOL. NO BLOOD NOTED IN STOOL. PT STATES "I DON'T KNOW HOW MUCH MORE BOWEL PREP I CAN DRINK". RN ENCOURAGED PT TO DRINK MUCH SHE CAN BUT TO TAKE IT SLOW. PT NO LONGER FEELS STRONG ENOUGH TO USE BEDSIDE COMMODE. PT PLACED IN ATTENDS WITH FREQUENT CHANGES AND LOTION APPLIED BUTTOCKS.
[2018-08-14 04:36] LABS: Hemoglobin 11.3 g/dL (11.5-16.0)
[2018-08-14 04:38] LABS: Hematocrit 33.8 % (33.0-51.0); Hemoglobin 11.2 g/dL (11.5-16.0); Mean Corpuscular HGB 33.2 pg (26.0-34.0); Mean Corpuscular HGB Conc 33.1 g/dL (31.5-36.5); Mean Platelet Volume 9.8 fL (9.1-12.4); Platelet Count 54 K/mm3 (150-400); RDW Coefficient Variation 14.6 % (11.7-14.2); RDW Standard Deviation 54.3 fL (35.1-46.3); Red Blood Cell Count 3.37 M/mm3 (3.80-5.20); White Blood Cell Count 11.22 K/mm3 (4.00-11.30)
[2018-08-14 04:40] LABS: Mean Corpuscular Volume 100 fL (80-100)
--- NOTE | 2018-08-14 05:24 | NUR ---
SHIFT SUMMARY PT ABLE TO DRINK 60% GOLYTELY AND HAS HAD A SIGNIFICANT AMOUNT OF WATERY CLEAR-YELLOW. NO BLOOD NOTED IN STOOL OR WHILE DOING DIDIER-CARE. NO ACUTE CHANGES OVERNIGHT. WILL REPORT TO DAYSHIFT NURSE.
[2018-08-14 05:25] LABS: Alanine Aminotransfer (ALT/SGP 44 U/L (12-78); Albumin, Blood 3.5 g/dL (3.4-5.0); Albumin/Globulin Ratio 0.9 (0.8-1.8); Alk Phos 105 U/L (50-136); Anion Gap 9 mmol/L (6-16); Aspartate Aminotrans (AST/SGOT 60 U/L (12-37); Blood Urea Nitrogen 23 mg/dL (8-24); Bun/Creatinine Ratio 26.7 (12.0-20.0); CO2, Blood 22 mmol/L (21-32); Calcium, Blood 8.1 mg/dL (8.5-10.1); Chloride, Blood 96 mmol/L (98-108); Creatinine, Blood 0.86 mg/dL (0.40-1.00); Globulin, Blood 3.7 g/dL (2.2-4.0); Glomerular Filtration Rate >60 (60-); Glucose, Blood 107 mg/dL (70-99); Potassium, Blood 4.8 mmol/L (3.5-5.5); Sodium, Blood 127 mmol/L (136-145); Total Protein, Blood 7.2 g/dL (6.4-8.2)
--- NOTE | 2018-08-14 07:15 | NUR ---
START OF SHIFT NOTE: PATIENT IS AWAKE AND ALERT AND ORIENTED, AFEBRILE, DENIES PAIN, SCHEDULED FOR COLONOSCOPY THIS AM DONE IN ROOM, LUNG SOUNDS ARE CLEAR BUT DIMINISHED, PATIENT IS IN CHRONIC A-FIB, BOWEL TONES ARE PRESENT AND HYPERACTIVE D/T GOLYTELY INGESTION AND CONTINUOUS BOWEL MOVEMENTS THROUGHOUT THE NIGHT, ATTENDS ARE IN PLACE, PATIENT ABLE TO GET UP TO BSC WITH ONE ASSIST, CALL LIGHT IN REACH, WILL CONTINUE TO MONITOR.
--- NOTE | 2018-08-14 07:52 | NUR ---
DAY SURGERY CREW IN ROOM PREPARING PATIENT FOR COLONOSCOPY TO BE DONE BY DR. GR, CALL LIGHT IN REACH, WILL CONTINUE TO MONITOR.
--- NOTE | 2018-08-14 07:56 | NUR ---
IN ICU FOR ENDOSCOPY PROCEDURE ADMISSION FOR PROCEDURE STARTED
--- NOTE | 2018-08-14 08:14 | NUR ---
08/14/18 0814 Ab Riddle History, Chart, Medications and Allergies reviewed before start of procedure.MONITOR INTACT WITH CONTINUOUS PULSE OXIMETRY AND INTERMITTENT BP.Glasses RemovedMONITOR INTACT WITH CONTINUOUS PULSE OXIMETRY AND INTERMITTENT BP.O2 VIA N/C INTACT THROUGHOUT SEDATION/PROCEDURE.O2 VIA N/C INTACT THROUGHOUT SEDATION/PROCEDURE. See Anesthesia record
--- NOTE | 2018-08-14 08:58 | NUR ---
COLONOSCOPY DONE IN ROOM, FINISHED AT THIS TIME, PATIENT WISHES TO GET TO BSC AND WILL TRY, PATIENT RECEIVED 150 OF PROPOFOL, CALL LIGHT IN REACH, WILL CONTINUE TO MONITOR.
--- NOTE | 2018-08-14 09:19 | NUR ---
PATIENT IS AWAKE AND ALERT AND ORIENTED, UP TO BSC WITH ONE ASSIST, DIRNKING DIET PEPSI AND EATING SOME TAPIOCA PUDDING, RESTING COMFORTABLY, CALL LIGHT IN REACH, WILL CONTINUE TO MONITOR.
--- NOTE | 2018-08-14 10:50 | NUR ---
PATIENT UP TO BSC WITH ONE ASSIST, STATED "I AM GOING TO SIT HERE FOR A WHILE", INSTRUCTED THAT WOULD NOT BE ADVANTAGEOUS TO HER SKIN, WILL CHECK AND RETURN TO BED IN 10 MINUTES, CALL LIGHT IN REACH, WILL CONTINUE TO MONITOR.
--- NOTE | 2018-08-14 10:59 | NUR ---
PATIENT RETURNED TO BED, NEW ATTENDS APPLIED AND CREAM PLACED ON RECTAL AREA. PATIENT DOING CROSSWORD PUZZLES, CALL LIGHT IN REACH, WILL CONTINUE TO MONITOR.
--- NOTE | 2018-08-14 17:55 | NUR ---
SHIFT SUMMARY NOTE: PATIENT IS UP IN ROOM, USES BSC WITH ONE ASSIST, SITTING AT TABLE DOING CROSS WORD PUZZLES, PATIENT ON DIABETIC/HEART HEALTHY DIET NOW, EATING WITH VERY GOOD APPETITE, ALERT AND ORIENTED, LS CLEAR, A-FIB, BOWEL TONES PRESENT AND HYPERACTIVE IN ALL FOUR QUADRANTS, HAD ONE SMALL BM THIS SHIFT, COLONOSCOPY THIS AM IN ROOM, NO ACTIVE BLEEDING FOUND PER DR. GR, PATIENT NOW MED NO TELE STATUS, PROBABLY HOME TOMORROW, CALL LIGHT IN REACH, WILL CONTINUE TO MONITOR.
--- NOTE | 2018-08-14 20:32 | NUR ---
ASSUMED CARE OF PT REPORT RCV'D FROM TORO DE JESUS. PT ALERT AND ORIENTED SITTING UP IN A CHAIR DOING CROSSWORD PUZZLE. PT DENIES PAIN AT THIS TIME AND STATES THAT SHE IS "FEELING MUCH BETTER" AND THAT SHE ANTICIPATES BEING DISCHARGED TOMORROW 08/15. PT ABLE TO AMBULATE AROUND THE ROOM WITH NO DIFFICULTY. VSS. SEE FULL SHIFT ASSESSMENT.
[2018-08-15 03:30] LABS: Hematocrit 28.9 % (33.0-51.0); Hemoglobin 9.8 g/dL (11.5-16.0)
[2018-08-15 03:48] LABS: Calcium, Blood 7.6 mg/dL (8.5-10.1); Creatinine, Blood 0.96 mg/dL (0.40-1.00); Potassium, Blood 5.4 mmol/L (3.5-5.5)
--- NOTE | 2018-08-15 05:57 | NUR ---
SHIFT SUMMARY NO ACUTE CHANGES OVERNIGHT. PT HAS BEEN UP AND AMBULATING IN HER ROOM AND THROUGH THE UNIT WITH HER WALKER WITH ZERO DIFFICULTY . PT HAS HAD 3 SOFT BM'S WITH NO BLOOD NOTED. 1700 ML URINARY OUTPUT. WILL REPORT TO DAYSHIFT NURSE.
--- NOTE | 2018-08-15 07:15 | NUR ---
START OF SHIFT NOTE: PATIENT IS AWAKE, UP AND WALKING IN ROOM, STEADY GAIT, ALERT AND ORIENTED, DOING CROSS WORK PUZZLES, LS CLEAR, A-FIB, WHICH IS A CHRONIC CONDITION, BOWEL TONES PRESENT IN ALL FOUR QUADRANTS BUT HYPOACTIVE, PULSES ARE PALPABLE IN BILATERAL LOWER EXTREMITIES, VSS, CALL LIGHT IN REACH, WILL CONTINUE TO MONITOR.
--- NOTE | 2018-08-15 09:37 | NUR ---
DR. GR IN TO SEE PATIENT, OK TO GO HOME IF DR. ESCAMILLA AGREES, DR. ESCAMILLA NOTIFIED, WILL COME TO SEE PATIENT.
--- NOTE | 2018-08-15 10:28 | NUR ---
DR. ESCAMILLA IN TO SEE PATIENT, AWAITING DISCHARGE ORDERS, PATIENT WILL DISCHARGE AFTER 13:00 HOURS WHEN FAMILY MEMEBER GETS OFF WORK TO PICK HER UP.
[2018-08-15] MEDS ORDERED: CITA20 PO (11:05)
[2018-08-15] MEDS ORDERED: ABAT250V (11:05)
--- NOTE | 2018-08-15 13:13 | NUR ---
PATIENT RECEIVED DISCHARGE INSTRUCTIONS WRITTEN AND VERBAL, GIVEN TO PATIENT AND EXPLAINED, PATIENT VERBALIZED UNDERSTANDING, PATIENT IS AWAITING ARRIVAL OF GRANDDAUGHTER, WHO WILL PROVIDE RIDE HOME.
--- NOTE | 2018-08-15 13:30 | NUR ---
PATIENT LEFT ROOM AND HOSPITAL VIA W/C AFTER GRANDDAUGHTER HERE TO PROVIDE RIDE HOME, PIV WAS REMOVED, PATIENT LEFT WITH ALL HER BELONGINGS.
== END 2018-08-15 13:57 | disposition home or self-care (01) ==
LOC: ER 02:48 → ERHOLD 02:49 → ICUE 02:49
PROVIDERS: Emergency Medicine; Internal Medicine Endocrinology, Diabetes & Metabolism; Internal Medicine Gastroenterology; ADMIT Internal Medicine
PROC: 0DBP8ZX Excision of Rectum, Via Natural or Artificial Opening Endoscopic, Diagnostic (ICD-10-PCS; principal; 2018-08-14 08:00)
PROC: 0DBB8ZX Excision of Ileum, Via Natural or Artificial Opening Endoscopic, Diagnostic (ICD-10-PCS; principal; 2018-08-14 08:00)
DX: K57.31 Diverticulosis of large intestine without perforation or abscess with bleeding (principal); K64.8 Other hemorrhoids; K52.9 Noninfective gastroenteritis and colitis, unspecified; E87.5 Hyperkalemia; I11.0 Hypertensive heart disease with heart failure; I50.32 Chronic diastolic (congestive) heart failure; I48.2 Chronic atrial fibrillation; K74.60 Unspecified cirrhosis of liver; J90 Pleural effusion, not elsewhere classified; D69.6 Thrombocytopenia, unspecified; N17.9 Acute kidney failure, unspecified; M54.9 Dorsalgia, unspecified; E11.40 Type 2 diabetes mellitus with diabetic neuropathy, unspecified; D50.9 Iron deficiency anemia, unspecified; F41.8 Other specified anxiety disorders; Z79.02 Long term (current) use of antithrombotics/antiplatelets; Z79.899 Other long term (current) drug therapy; Z87.19 Personal history of other diseases of the digestive system; Z86.73 Personal history of transient ischemic attack (TIA), and cerebral infarction without residual deficits
CPT/HCPCS: 36415; 71045; 76705; 80048; 80053; 82105; 82947; 83735; 83880; 84484; 85014; 85018; 85025; 85027; 85610; 85730; 86850; 86870; 86900; 86901; 88305; 93005; 93010; 96374; 99285-25; G0378; J1940; J2704; J7030; J7120

== ENCOUNTER 2018-10-04 18:26 | Emergency (ER) | payer OTHER ==
[~2018-10-04] VITALS: Ht 160 cm; Wt 67.6 kg
[~2018-10-04 18:26] MED LIST changes: +ABAT250V; +PRAV20 PO
[2018-10-04 21:01] LABS: BASOPHILS ABSOLUTE AUTO 0.03 K/mm3 (0.00-0.23); BASOPHILS PERCENT AUTO 0 % (0-2); EOSINOPHILS ABSOLUTE AUTO 0.13 K/mm3 (0.00-0.68); EOSINOPHILS PERCENT AUTO 2 % (0-6); Hemoglobin 10.8 g/dL (11.5-16.0); IMMATURE GRAN ABSOLUTE AUTO 0.03 K/mm3 (0.00-0.10); IMMATURE GRAN PERCENT AUTO 0 % (0-1); LYMPHOCYTES ABSOLUTE AUTO 1.09 K/mm3 (0.84-5.20); LYMPHOCYTES PERCENT AUTO 13 % (21-46); MONOCYTES ABSOLUTE AUTO 0.75 K/mm3 (0.16-1.47); MONOCYTES PERCENT AUTO 9 % (4-13); Mean Corpuscular HGB 34.1 pg (26.0-34.0); Mean Corpuscular HGB Conc 32.7 g/dL (31.5-36.5); Mean Platelet Volume 10.8 fL (9.1-12.4); NEUTROPHILS ABSOLUTE AUTO 6.12 K/mm3 (1.96-9.15); NEUTROPHILS PERCENT AUTO 75 % (41-73); RDW Coefficient Variation 14.2 % (11.7-14.2); RDW Standard Deviation 54.9 fL (35.1-46.3); Red Blood Cell Count 3.17 M/mm3 (3.80-5.20); White Blood Cell Count 8.15 K/mm3 (4.00-11.30)
[2018-10-04 21:04] LABS: Mean Corpuscular Volume 104 fL (80-100)
[2018-10-04 21:05] LABS: Platelet Count 39 K/mm3 (150-400)
[2018-10-04 21:19] LABS: Alanine Aminotransfer (ALT/SGP 37 U/L (12-78); Albumin, Blood 3.2 g/dL (3.4-5.0); Albumin/Globulin Ratio 0.8 (0.8-1.8); Alk Phos 114 U/L (50-136); Anion Gap 4 mmol/L (6-16); Aspartate Aminotrans (AST/SGOT 60 U/L (12-37); Bilirubin, Total 1.2 mg/dL (0.1-1.0); Blood Urea Nitrogen 23 mg/dL (8-24); Bun/Creatinine Ratio 26.3 (12.0-20.0); CO2, Blood 26 mmol/L (21-32); Calcium, Blood 8.1 mg/dL (8.5-10.1); Chloride, Blood 101 mmol/L (98-108); Creatinine, Blood 0.87 mg/dL (0.40-1.00); Globulin, Blood 3.9 g/dL (2.2-4.0); Glomerular Filtration Rate >60 (60-); Glucose, Blood 225 mg/dL (70-99); Potassium, Blood 4.9 mmol/L (3.5-5.5); Sodium, Blood 131 mmol/L (136-145); Total Protein, Blood 7.1 g/dL (6.4-8.2); Troponin I <0.015 ng/mL (0.000-0.040)
== END 2018-10-04 22:38 | disposition home or self-care (01) ==
LOC: ER 18:26
PROVIDERS: Emergency Medicine
DX: I48.91 Unspecified atrial fibrillation (principal); Z88.0 Allergy status to penicillin; Z88.2 Allergy status to sulfonamides; Z88.1 Allergy status to other antibiotic agents; Z88.6 Allergy status to analgesic agent; Z79.899 Other long term (current) drug therapy; Z79.4 Long term (current) use of insulin; E11.9 Type 2 diabetes mellitus without complications; Z86.73 Personal history of transient ischemic attack (TIA), and cerebral infarction without residual deficits; Z85.038 Personal history of other malignant neoplasm of large intestine; Z87.891 Personal history of nicotine dependence
CPT/HCPCS: 36415; 71046; 80053; 83880; 84484; 85025; 93005; 93010; 96374; 99285-25; J1940

== ENCOUNTER 2019-01-22 10:16 | Emergency (ER) | payer OTHER ==
[~2019-01-22] VITALS: Ht 160 cm; Wt 63.5 kg
[2019-01-22 11:32] LABS: BASOPHILS ABSOLUTE AUTO 0.09 K/mm3 (0.00-0.23); BASOPHILS PERCENT AUTO 1 % (0-2); EOSINOPHILS ABSOLUTE AUTO 0.17 K/mm3 (0.00-0.68); EOSINOPHILS PERCENT AUTO 1 % (0-6); Hematocrit 35.6 % (33.0-51.0); Hemoglobin 11.9 g/dL (11.5-16.0); IMMATURE GRAN ABSOLUTE AUTO 0.06 K/mm3 (0.00-0.10); IMMATURE GRAN PERCENT AUTO 1 % (0-1); LYMPHOCYTES ABSOLUTE AUTO 1.87 K/mm3 (0.84-5.20); LYMPHOCYTES PERCENT AUTO 15 % (21-46); MONOCYTES ABSOLUTE AUTO 1.12 K/mm3 (0.16-1.47); MONOCYTES PERCENT AUTO 9 % (4-13); Mean Corpuscular HGB 33.5 pg (26.0-34.0); Mean Corpuscular HGB Conc 33.4 g/dL (31.5-36.5); Mean Corpuscular Volume 100 fL (80-100); Mean Platelet Volume 10.4 fL (9.1-12.4); NEUTROPHILS ABSOLUTE AUTO 9.44 K/mm3 (1.96-9.15); NEUTROPHILS PERCENT AUTO 74 % (41-73); Platelet Count 57 K/mm3 (150-400); RDW Coefficient Variation 13.7 % (11.7-14.2); Red Blood Cell Count 3.55 M/mm3 (3.80-5.20); White Blood Cell Count 12.75 K/mm3 (4.00-11.30)
[2019-01-22 11:57] LABS: Alanine Aminotransfer (ALT/SGP 35 U/L (12-78); Albumin, Blood 3.5 g/dL (3.4-5.0); Albumin/Globulin Ratio 0.9 (0.8-1.8); Alk Phos 126 U/L (50-136); Anion Gap 6 mmol/L (6-16); Aspartate Aminotrans (AST/SGOT 51 U/L (12-37); Bilirubin, Total 1.4 mg/dL (0.1-1.0); Blood Urea Nitrogen 14 mg/dL (8-24); Bun/Creatinine Ratio 20.3 (12.0-20.0); CO2, Blood 26 mmol/L (21-32); Calcium, Blood 8.7 mg/dL (8.5-10.1); Chloride, Blood 101 mmol/L (98-108); Creatinine, Blood 0.69 mg/dL (0.40-1.00); Globulin, Blood 3.7 g/dL (2.2-4.0); Glomerular Filtration Rate >60 (60-); Glucose, Blood 133 mg/dL (70-99); Potassium, Blood 4.3 mmol/L (3.5-5.5); Sodium, Blood 133 mmol/L (136-145); Total Protein, Blood 7.2 g/dL (6.4-8.2); Troponin I 0.016 ng/mL (0.000-0.040)
[2019-01-22 12:04] LABS: Digoxin (Lanoxin) 0.47 ug/mL (0.80-2.00)
[2019-01-22] MEDS ORDERED: Zithromax250 MG PO (14:13)
[2019-01-22] MEDS ORDERED: Lasix40 MG PO (14:13)
== END 2019-01-22 14:50 | disposition home or self-care (01) ==
LOC: ER 10:16
PROVIDERS: Physician Assistant
DX: R09.89 Other specified symptoms and signs involving the circulatory and respiratory systems (principal); Z88.0 Allergy status to penicillin; Z88.2 Allergy status to sulfonamides; Z88.1 Allergy status to other antibiotic agents; Z88.6 Allergy status to analgesic agent; Z79.899 Other long term (current) drug therapy; Z79.4 Long term (current) use of insulin; E11.9 Type 2 diabetes mellitus without complications; I10 Essential (primary) hypertension; Z86.73 Personal history of transient ischemic attack (TIA), and cerebral infarction without residual deficits; I48.91 Unspecified atrial fibrillation; F32.9 Major depressive disorder, single episode, unspecified; Z87.891 Personal history of nicotine dependence
CPT/HCPCS: 36415; 71046; 80053; 80162; 83880; 84484; 85025; 93005; 93010; 99285-25

== ENCOUNTER 2019-04-17 18:17 | Observation (INO) | payer OTHER ==
[~2019-04-17] VITALS: Ht 160 cm; Wt 68.5 kg
[~2019-04-17 18:17] MED LIST changes: +Lasix40 MG PO
[2019-04-17 19:03] LABS: BASOPHILS ABSOLUTE AUTO 0.05 K/mm3 (0.00-0.23); BASOPHILS PERCENT AUTO 1 % (0-2); EOSINOPHILS ABSOLUTE AUTO 0.28 K/mm3 (0.00-0.68); EOSINOPHILS PERCENT AUTO 3 % (0-6); Hemoglobin 11.3 g/dL (11.5-16.0); IMMATURE GRAN ABSOLUTE AUTO 0.04 K/mm3 (0.00-0.10); IMMATURE GRAN PERCENT AUTO 0 % (0-1); LYMPHOCYTES ABSOLUTE AUTO 1.32 K/mm3 (0.84-5.20); LYMPHOCYTES PERCENT AUTO 13 % (21-46); MONOCYTES ABSOLUTE AUTO 1.12 K/mm3 (0.16-1.47); MONOCYTES PERCENT AUTO 11 % (4-13); Mean Corpuscular HGB 33.8 pg (26.0-34.0); Mean Corpuscular HGB Conc 33.2 g/dL (31.5-36.5); Mean Corpuscular Volume 102 fL (80-100); Mean Platelet Volume 10.3 fL (9.1-12.4); NEUTROPHILS ABSOLUTE AUTO 7.07 K/mm3 (1.96-9.15); NEUTROPHILS PERCENT AUTO 72 % (41-73); Platelet Count 59 K/mm3 (150-400); RDW Coefficient Variation 14.1 % (11.7-14.2); RDW Standard Deviation 53.5 fL (35.1-46.3); Red Blood Cell Count 3.34 M/mm3 (3.80-5.20); White Blood Cell Count 9.88 K/mm3 (4.00-11.30)
[2019-04-17 19:21] LABS: Alanine Aminotransfer (ALT/SGP 37 U/L (12-78); Albumin, Blood 3.4 g/dL (3.4-5.0); Albumin/Globulin Ratio 0.9 (0.8-1.8); Alk Phos 139 U/L (50-136); Anion Gap 7 mmol/L (6-16); Aspartate Aminotrans (AST/SGOT 44 U/L (12-37); Bilirubin, Total 0.8 mg/dL (0.1-1.0); Blood Urea Nitrogen 19 mg/dL (8-24); Bun/Creatinine Ratio 22.8 (12.0-20.0); CO2, Blood 23 mmol/L (21-32); Calcium, Blood 8.5 mg/dL (8.5-10.1); Chloride, Blood 103 mmol/L (98-108); Creatinine, Blood 0.83 mg/dL (0.40-1.00); Globulin, Blood 3.8 g/dL (2.2-4.0); Glomerular Filtration Rate >60 (60-); Glucose, Blood 161 mg/dL (70-99); Potassium, Blood 3.9 mmol/L (3.5-5.5); Sodium, Blood 133 mmol/L (136-145); Total Protein, Blood 7.2 g/dL (6.4-8.2)
--- NOTE | 2019-04-18 03:01 | NUR ---
PATIENT IS A NEW ADMIT FROM THE ED. SBA TRANSFER FROM [facility] TO BED. AXOX 4. SOB W/EXERTION. REPORTS HAD FLU VACCINE. PATIENT ORIENTED TO ROOM AND CALL LIGHT SYSTEM. WILL BE ON TELEMETRY. ROOM AIR. LASIX GIVEN IN ED. PATIENT UP TO BATHROOM WITH SBA. CALL LIGHT IN REACH. WILL CONTINUE TO MONITOR.
[2019-04-18 03:33] LABS: Anion Gap 9 mmol/L (6-16); Blood Urea Nitrogen 16 mg/dL (8-24); Bun/Creatinine Ratio 21.7 (12.0-20.0); CO2, Blood 27 mmol/L (21-32); Calcium, Blood 8.9 mg/dL (8.5-10.1); Chloride, Blood 101 mmol/L (98-108); Creatinine, Blood 0.74 mg/dL (0.40-1.00); Glomerular Filtration Rate >60 (60-); Glucose, Blood 151 mg/dL (70-99); Potassium, Blood 3.6 mmol/L (3.5-5.5); Sodium, Blood 137 mmol/L (136-145)
--- NOTE | 2019-04-18 04:10 | NUR ---
04/18/19 0330 ASSUMED CARE OF PT FROM LOREN Byrne AT 0330. PT RESTING IN BED AND C/O JOINT PAIN AT LEVEL "8". NO PAIN MED ORDERED. RN WILL PAGE MD FOR MED. SLIGHT SOB AND COUGHING NOTED. O2 SATS= 93-94 % ON ROOM AIR. INSTRUCTED TO CALL STAFF TO GET OUT OF BED. VERBALIZES UNDERSTANDING.
--- NOTE | 2019-04-18 05:11 | NUR ---
04/18/19 0505 RESTING IN BED WITH OCC. COUGH. STATES PAIN MED RELIEVING JOINT DISCOMFORT WELL. PAIN DOWN TO "4" NOW. ENCOURAGED REST. HEART MONITOR STABLE AT ATRIAL FIB AT 96 PER EDILMA.
--- NOTE | 2019-04-18 11:31 | NUR ---
SPOKE TO DR MANDUJANO OF PT'S LOOSE STOOL THIS MORNING X2, BUT PT HAS LOOSE STOOL AT BASELINE DUE TO BOWEL RESECTION. HE DOES NOT WANT STOOL SAMPLE AT THIS TIME
--- NOTE | 2019-04-18 18:43 | NUR ---
SHIFT SUMMARY MARIANELA MCADAMS X1 THIS SHIFT FOR CHRONIC PAIN, WORKED WELL. DAUGHTER VISITED. PLEASANT AND COOPERATIVE. TELE DC'D. SBA TO BR. TOOK MEDS PRESCRIBED, CALL LIGHT IN REACH, WCTM
[2019-04-19 05:28] LABS: BASOPHILS ABSOLUTE AUTO 0.06 K/mm3 (0.00-0.23); BASOPHILS PERCENT AUTO 1 % (0-2); EOSINOPHILS ABSOLUTE AUTO 0.29 K/mm3 (0.00-0.68); EOSINOPHILS PERCENT AUTO 4 % (0-6); Hematocrit 32.6 % (33.0-51.0); Hemoglobin 10.9 g/dL (11.5-16.0); IMMATURE GRAN ABSOLUTE AUTO 0.05 K/mm3 (0.00-0.10); IMMATURE GRAN PERCENT AUTO 1 % (0-1); LYMPHOCYTES ABSOLUTE AUTO 1.64 K/mm3 (0.84-5.20); LYMPHOCYTES PERCENT AUTO 20 % (21-46); MONOCYTES ABSOLUTE AUTO 0.94 K/mm3 (0.16-1.47); MONOCYTES PERCENT AUTO 11 % (4-13); Mean Corpuscular HGB 34.2 pg (26.0-34.0); Mean Corpuscular HGB Conc 33.4 g/dL (31.5-36.5); Mean Corpuscular Volume 102 fL (80-100); Mean Platelet Volume 10.1 fL (9.1-12.4); NEUTROPHILS PERCENT AUTO 64 % (41-73); RDW Standard Deviation 52.2 fL (35.1-46.3); Red Blood Cell Count 3.19 M/mm3 (3.80-5.20); White Blood Cell Count 8.28 K/mm3 (4.00-11.30)
[2019-04-19 05:35] LABS: Platelet Count 47 K/mm3 (150-400)
[2019-04-19 05:43] LABS: International Normalized Ratio 1.39; Prothrombin Time Results 14.3 Sec (9.7-11.5)
[2019-04-19 05:54] LABS: Albumin, Blood 3.1 g/dL (3.4-5.0); Albumin/Globulin Ratio 0.9 (0.8-1.8); Bilirubin, Total 1.4 mg/dL (0.1-1.0); Bun/Creatinine Ratio 23.6 (12.0-20.0); Creatinine, Blood 0.98 mg/dL (0.40-1.00); Globulin, Blood 3.5 g/dL (2.2-4.0); Potassium, Blood 3.7 mmol/L (3.5-5.5); Total Protein, Blood 6.6 g/dL (6.4-8.2)
--- NOTE | 2019-04-19 07:49 | NUR ---
PT is on room air tolerating diet and activity. Hx of cirrhosis and had critically low platelets this AM DR updated. No new orders. Possible dc today.
[2019-04-19] MEDS ORDERED: FURO20 PO (12:29)
[2019-04-19] MEDS ORDERED: XARELTO10 MG PO (12:29)
--- NOTE | 2019-04-19 13:34 | NUR ---
SUMMARY/DISCHARGE PT BEING DISCHARGED TO HOME, SHE STATES HER RIDE WILL NOT BE HERE UNTIL 3PM, WILL CONT TO MONITOR
--- NOTE | 2019-04-19 15:10 | NUR ---
SUMMARY/DISCHARGE PT DISCHARGED TO HOME, PT VERBALIZED UNDERSTANDING OF DISCHARGE INSTRUCTIONS REGARDING FOLLOW UP AND MEDICATIONS, PT WAITING FOR HER RIDE AT THIS TIME
--- NOTE | 2019-04-19 15:49 | NUR ---
PT TAKEN OUT SAFELY VIA WHEELCHAIR
== END 2019-04-19 15:45 | disposition home or self-care (01) ==
LOC: ER 18:17 → MEDS 18:18 → ER 04-18 02:10 → MEDS 04-18 02:40
PROVIDERS: Internal Medicine; Physician Assistant; ADMIT Hospitalist
DX: I11.0 Hypertensive heart disease with heart failure (principal); I50.33 Acute on chronic diastolic (congestive) heart failure; I48.20 Chronic atrial fibrillation, unspecified; E87.1 Hypo-osmolality and hyponatremia; F41.9 Anxiety disorder, unspecified; F32.9 Major depressive disorder, single episode, unspecified; M54.5 Low back pain; E11.40 Type 2 diabetes mellitus with diabetic neuropathy, unspecified; G89.29 Other chronic pain; D50.9 Iron deficiency anemia, unspecified; D69.6 Thrombocytopenia, unspecified; K74.60 Unspecified cirrhosis of liver; K75.81 Nonalcoholic steatohepatitis (NASH); Z66 Do not resuscitate; Z96.653 Presence of artificial knee joint, bilateral; Z90.49 Acquired absence of other specified parts of digestive tract; Z90.710 Acquired absence of both cervix and uterus; Z90.722 Acquired absence of ovaries, bilateral; Z90.79 Acquired absence of other genital organ(s); Z88.0 Allergy status to penicillin; Z88.2 Allergy status to sulfonamides; Z88.1 Allergy status to other antibiotic agents; Z88.8 Allergy status to other drugs, medicaments and biological substances; Z86.73 Personal history of transient ischemic attack (TIA), and cerebral infarction without residual deficits; Z79.52 Long term (current) use of systemic steroids; Z79.4 Long term (current) use of insulin; Z79.01 Long term (current) use of anticoagulants; Z79.899 Other long term (current) drug therapy
CPT/HCPCS: 36415; 71046; 80048; 80053; 83880; 84145; 85025; 85610; 85730; 93005; 93010; 96374; 96376; 99285-25; A9270-GY; G0378; J1940

== ENCOUNTER 2019-05-22 19:36 | Emergency (ER) | payer OTHER ==
[~2019-05-22] VITALS: Ht 160 cm; Wt 65.8 kg
[~2019-05-22 19:36] MED LIST changes: +FURO20 PO
== END 2019-05-22 22:05 | disposition home or self-care (01) ==
LOC: ER 19:36
DX: S01.81XA Laceration without foreign body of other part of head, initial encounter (principal); S20.01XA Contusion of right breast, initial encounter; E11.9 Type 2 diabetes mellitus without complications; I10 Essential (primary) hypertension; I48.91 Unspecified atrial fibrillation; Z86.73 Personal history of transient ischemic attack (TIA), and cerebral infarction without residual deficits; N28.9 Disorder of kidney and ureter, unspecified; Z79.4 Long term (current) use of insulin; Z79.899 Other long term (current) drug therapy; Z88.0 Allergy status to penicillin; Z88.2 Allergy status to sulfonamides; Z88.1 Allergy status to other antibiotic agents; Z88.8 Allergy status to other drugs, medicaments and biological substances; W19.XXXA Unspecified fall, initial encounter
CPT/HCPCS: 12013; 70450; 96372-59; 99284-25; J3010

== ENCOUNTER 2019-12-18 18:53 | Emergency (ER) | payer OTHER ==
[~2019-12-18] VITALS: Ht 160 cm; Wt 68.0 kg
[~2019-12-18 18:53] MED LIST changes: +METO25ER PO; +OXYC5 PO
[2019-12-18 19:32] LABS: BASOPHILS ABSOLUTE AUTO 0.08 K/mm3 (0.00-0.23); BASOPHILS PERCENT AUTO 1 % (0-2); EOSINOPHILS ABSOLUTE AUTO 0.04 K/mm3 (0.00-0.68); EOSINOPHILS PERCENT AUTO 0 % (0-6); Hematocrit 38.2 % (33.0-51.0); Hemoglobin 12.9 g/dL (11.5-16.0); IMMATURE GRAN ABSOLUTE AUTO 0.12 K/mm3 (0.00-0.10); IMMATURE GRAN PERCENT AUTO 1 % (0-1); LYMPHOCYTES ABSOLUTE AUTO 1.24 K/mm3 (0.84-5.20); LYMPHOCYTES PERCENT AUTO 7 % (21-46); MONOCYTES ABSOLUTE AUTO 1.25 K/mm3 (0.16-1.47); MONOCYTES PERCENT AUTO 7 % (4-13); Mean Corpuscular HGB 32.4 pg (26.0-34.0); Mean Corpuscular HGB Conc 33.8 g/dL (31.5-36.5); Mean Corpuscular Volume 96 fL (80-100); Mean Platelet Volume 10.6 fL (9.1-12.4); NEUTROPHILS ABSOLUTE AUTO 14.94 K/mm3 (1.96-9.15); NEUTROPHILS PERCENT AUTO 85 % (41-73); Platelet Count 103 K/mm3 (150-400); RDW Coefficient Variation 13.9 % (11.7-14.2); RDW Standard Deviation 49.2 fL (35.1-46.3); Red Blood Cell Count 3.98 M/mm3 (3.80-5.20); White Blood Cell Count 17.67 K/mm3 (4.00-11.30)
[2019-12-18 19:54] LABS: Alanine Aminotransfer (ALT/SGP 25 U/L (12-78); Albumin, Blood 3.1 g/dL (3.4-5.0); Albumin/Globulin Ratio 0.7 (0.8-1.8); Alk Phos 133 U/L (50-136); Anion Gap 10 mmol/L (6-16); Aspartate Aminotrans (AST/SGOT 43 U/L (12-37); Blood Urea Nitrogen 21 mg/dL (8-24); Bun/Creatinine Ratio 30.2 (12.0-20.0); CO2, Blood 22 mmol/L (21-32); Calcium, Blood 8.9 mg/dL (8.5-10.1); Chloride, Blood 95 mmol/L (98-108); Globulin, Blood 4.6 g/dL (2.2-4.0); Glomerular Filtration Rate >60 (60-); Glucose, Blood 241 mg/dL (70-99); Potassium, Blood 3.9 mmol/L (3.5-5.5); Sodium, Blood 127 mmol/L (136-145); Total Protein, Blood 7.7 g/dL (6.4-8.2); Troponin I <0.015 ng/mL (0.000-0.040)
== END 2019-12-18 20:43 | disposition home or self-care (01) ==
LOC: ER 18:53
PROVIDERS: Emergency Medicine
DX: R06.00 Dyspnea, unspecified (principal); F41.8 Other specified anxiety disorders; E11.40 Type 2 diabetes mellitus with diabetic neuropathy, unspecified; I11.0 Hypertensive heart disease with heart failure; I50.32 Chronic diastolic (congestive) heart failure; I48.91 Unspecified atrial fibrillation; D50.9 Iron deficiency anemia, unspecified; Z88.0 Allergy status to penicillin; Z88.2 Allergy status to sulfonamides; Z88.1 Allergy status to other antibiotic agents; Z88.8 Allergy status to other drugs, medicaments and biological substances; Z79.899 Other long term (current) drug therapy
CPT/HCPCS: 36415; 71045; 80053; 84484; 85025; 93005; 93010; 99284-25

== ENCOUNTER 2020-09-12 10:21 | Emergency (ER) | payer OTHER ==
[~2020-09-12] VITALS: Ht 160 cm; Wt 67.6 kg
[~2020-09-12 10:21] MED LIST changes: +Citalopram HBr40 MG PO; +INCRUSE ELLIPTA INH; +KAPSPARGO SPRIN25 MG PO; +SPIR25 PO
[2020-09-12 12:16] LABS: BASOPHILS ABSOLUTE AUTO 0.06 K/mm3 (0.00-0.23); BASOPHILS PERCENT AUTO 1 % (0-2); EOSINOPHILS PERCENT AUTO 1 % (0-6); Hematocrit 34.4 % (33.0-51.0); Hemoglobin 11.7 g/dL (11.5-16.0); IMMATURE GRAN ABSOLUTE AUTO 0.07 K/mm3 (0.00-0.10); IMMATURE GRAN PERCENT AUTO 1 % (0-1); LYMPHOCYTES ABSOLUTE AUTO 1.33 K/mm3 (0.84-5.20); LYMPHOCYTES PERCENT AUTO 10 % (21-46); MONOCYTES ABSOLUTE AUTO 1.19 K/mm3 (0.16-1.47); MONOCYTES PERCENT AUTO 9 % (4-13); Mean Corpuscular HGB 33.8 pg (26.0-34.0); Mean Corpuscular Volume 99 fL (80-100); Mean Platelet Volume 10.2 fL (9.1-12.4); NEUTROPHILS ABSOLUTE AUTO 10.51 K/mm3 (1.96-9.15); NEUTROPHILS PERCENT AUTO 79 % (41-73); Platelet Count 90 K/mm3 (150-400); RDW Coefficient Variation 14.3 % (11.7-14.2); RDW Standard Deviation 51.8 fL (35.1-46.3); Red Blood Cell Count 3.46 M/mm3 (3.80-5.20); White Blood Cell Count 13.26 K/mm3 (4.00-11.30)
[2020-09-12 12:40] LABS: Alanine Aminotransfer (ALT/SGP 22 U/L (12-78); Albumin, Blood 2.6 g/dL (3.4-5.0); Albumin/Globulin Ratio 0.5 (0.8-1.8); Alk Phos 155 U/L (50-136); Anion Gap 6 mmol/L (6-16); Aspartate Aminotrans (AST/SGOT 49 U/L (12-37); Blood Urea Nitrogen 15 mg/dL (8-24); CO2, Blood 28 mmol/L (21-32); Chloride, Blood 90 mmol/L (98-108); Creatinine, Blood 0.94 mg/dL (0.40-1.00); Globulin, Blood 4.8 g/dL (2.2-4.0); Glomerular Filtration Rate >60 (60-); Glucose, Blood 344 mg/dL (70-99); Potassium, Blood 4.5 mmol/L (3.5-5.5); Sodium, Blood 124 mmol/L (136-145); Total Protein, Blood 7.4 g/dL (6.4-8.2); Troponin I <0.015 ng/mL (0.000-0.040)
[2020-09-12] MEDS ORDERED: FURO40 PO (14:54)
== END 2020-09-12 17:00 | disposition home or self-care (01) ==
LOC: ER 10:21
PROVIDERS: Physician Assistant
DX: I11.0 Hypertensive heart disease with heart failure (principal); I50.32 Chronic diastolic (congestive) heart failure; R09.02 Hypoxemia; E11.40 Type 2 diabetes mellitus with diabetic neuropathy, unspecified; Z79.4 Long term (current) use of insulin; Z88.0 Allergy status to penicillin; Z88.2 Allergy status to sulfonamides; Z88.6 Allergy status to analgesic agent; Z88.8 Allergy status to other drugs, medicaments and biological substances; Z88.1 Allergy status to other antibiotic agents; Z79.899 Other long term (current) drug therapy
CPT/HCPCS: 36415; 71046; 80053; 83880; 84484; 85025; 93005; 93010; 99284-25

== ENCOUNTER 2020-10-26 13:20 | Emergency (ER) | payer OTHER ==
[~2020-10-26] VITALS: Ht 160 cm; Wt 65.8 kg
[2020-10-26 14:24] LABS: BASOPHILS ABSOLUTE AUTO 0.05 K/mm3 (0.00-0.23); BASOPHILS PERCENT AUTO 1 % (0-2); EOSINOPHILS ABSOLUTE AUTO 0.17 K/mm3 (0.00-0.68); EOSINOPHILS PERCENT AUTO 2 % (0-6); Hematocrit 29.3 % (33.0-51.0); Hemoglobin 10.1 g/dL (11.5-16.0); IMMATURE GRAN ABSOLUTE AUTO 0.05 K/mm3 (0.00-0.10); IMMATURE GRAN PERCENT AUTO 1 % (0-1); LYMPHOCYTES ABSOLUTE AUTO 0.96 K/mm3 (0.84-5.20); LYMPHOCYTES PERCENT AUTO 10 % (21-46); MONOCYTES ABSOLUTE AUTO 0.74 K/mm3 (0.16-1.47); MONOCYTES PERCENT AUTO 8 % (4-13); Mean Corpuscular HGB 34.8 pg (26.0-34.0); Mean Corpuscular HGB Conc 34.5 g/dL (31.5-36.5); Mean Corpuscular Volume 101 fL (80-100); Mean Platelet Volume 10.8 fL (9.1-12.4); NEUTROPHILS ABSOLUTE AUTO 7.54 K/mm3 (1.96-9.15); NEUTROPHILS PERCENT AUTO 79 % (41-73); Platelet Count 84 K/mm3 (150-400); RDW Coefficient Variation 14.5 % (11.7-14.2); RDW Standard Deviation 53.9 fL (35.1-46.3); White Blood Cell Count 9.51 K/mm3 (4.00-11.30)
[2020-10-26 14:58] LABS: Alanine Aminotransfer (ALT/SGP 15 U/L (12-78); Albumin, Blood 2.4 g/dL (3.4-5.0); Albumin/Globulin Ratio 0.5 (0.8-1.8); Alk Phos 127 U/L (50-136); Anion Gap 7 mmol/L (6-16); Aspartate Aminotrans (AST/SGOT 23 U/L (12-37); Bilirubin, Total 1.3 mg/dL (0.1-1.0); Blood Urea Nitrogen 27 mg/dL (8-24); Bun/Creatinine Ratio 26.7 (12.0-20.0); CO2, Blood 26 mmol/L (21-32); Calcium, Blood 7.9 mg/dL (8.5-10.1); Chloride, Blood 95 mmol/L (98-108); Creatinine, Blood 1.01 mg/dL (0.40-1.00); Digoxin (Lanoxin) 1.04 ug/mL (0.80-2.00); Globulin, Blood 4.4 g/dL (2.2-4.0); Glomerular Filtration Rate 56 (60-); Glucose, Blood 271 mg/dL (70-99); Potassium, Blood 4.2 mmol/L (3.5-5.5); Sodium, Blood 128 mmol/L (136-145); Total Protein, Blood 6.8 g/dL (6.4-8.2); Troponin I <0.015 ng/mL (0.000-0.040)
--- NOTE | 2020-10-26 16:29 | NUR ---
ED Palliative Care Consult Spoke with Dr Sepulveda and discussed case. Pt to ED for falls, weakness, and abominal pain. No medical reason to admit at this time. Pt resting on gurny upon arrival. Pt is pleasantly confused and denies pain at this time. Pt's granddaughter Trudy at bedside. Trudy reports being Pt's primary caregiver and hospice came to the house today and evaluated Pt for services. Reviewed ED Providers recommendations of D/C back home. Anabelle is agreeable but is requesting transport to assist with Pt getting back into home. Offered therapeutic listening and answered questions. Anabelle expresses appreciation of visit. Called and spoke with [facility] Admitting RN Sierra and discussed case. Plan is for hospice district medical examiner to review case and make determination. Spoke with ED Siene Maker Anderson and ED RN Vero. Discussed case and Pt's need for transport. Palliative Care will remain available.
== END 2020-10-26 20:38 | disposition home or self-care (01) ==
LOC: ER 13:20
PROVIDERS: Emergency Medicine
DX: R53.1 Weakness (principal); R53.81 Other malaise; I11.0 Hypertensive heart disease with heart failure; I50.32 Chronic diastolic (congestive) heart failure; Z91.81 History of falling; Z88.0 Allergy status to penicillin; Z88.2 Allergy status to sulfonamides; Z88.1 Allergy status to other antibiotic agents; Z88.5 Allergy status to narcotic agent; Z79.899 Other long term (current) drug therapy
CPT/HCPCS: 36415; 70450; 71045; 74176; 80053; 80162; 83880; 84484; 85025; 93005; 93010; 99285-25